=== PATIENT | male | born 1960 | race Caucasian/White ===

== ENCOUNTER 2018-08-22 18:42 | Inpatient (IN) | payer OTHER ==
[2018-08-22 18:55] VITALS: BMI 36.3
[2018-08-22] MEDS ORDERED: ADENOSINE 6 MG/2 ML VIAL IVPUSH ONE ×4 (18:57→19:36)
--- NOTE | 2018-08-22 19:29 | PDOC ---
Attending Attestation - Resident Resident Name: Keira Lira - ED Attending Attestation I have performed the following: I have examined & evaluated the patient, The case was reviewed & discussed with the resident, I agree w/resident's findings & plan, Exceptions are as noted - HPI HPI: 08/22/18 19:28 89-year-old male referred by Dr. Alves for rapid A. fib. Patient had been intermittently short of breath for the past 2 weeks and made an appointment with Dr. Cordero. Upon arrival to his office, it was evident that his heart rate was in the high 170s He received bystolic 5 mg by mouth in the office and then was brought to the emergency department 08/22/18 20:09 - Physicial Exam PE: 08/22/18 19:29 well-developed well nourished 57-year-old male presents with rapid heart beat in 170's head ncat neck supple lungs cvs tachycardia abd protuberant ext skin warm and dry neuro axox3 08/22/18 19:30 - Medical Decision Making 08/22/18 20:09 57 yo female with PMH of hemochromatosis,htn will admitted to telemetry for new onset af RVR, lovenox given Dr Jose Angel Wahl ,dental assistant medical assistant consulted , pt given IV then po cardizem and rate decreased from 177 to 107 08/22/18 22:36
[2018-08-22 19:30] LABS: BASO % 0.6 % (0-2.0); EOS % 0.8 % (0-4.5); HEMATOCRIT 52.7 % (35.4-49); HEMOGLOBIN 18.3 GM/dL (11.7-16.9); LYMPH % 14.4 % (8-40); MCH 30.6 pg (25.7-33.7); MCHC 34.7 g/dl (32.0-35.9); MEAN CELL VOLUME 88.4 fl (80-96); MEAN PLT VOLUME 9.6 fl (7.5-11.1); MONO % 8.6 % (3.8-10.2); NEUT % 75.6 % (42.8-82.8); PLATELET COUNT 301 K/MM3 (134-434); RBC 5.96 M/mm3 (4.00-5.60); RDW 13.6 % (11.9-15.9); WHITE BLOOD COUNT 11.6 K/mm3 (4.0-10.0)
--- NOTE | 2018-08-22 19:31 | PDOC ---
History of Present Illness - General History Source: Patient - History of Present Illness Initial Comments: 08/22/18 19:20 57M w/ pmhx of HTN and hemachromatoss was sent to the ED by his PCP, Dr. Cordero for abnormal EKG done in the office. Pt admits to shortness of breath over the past 2 weeks, but attributed his symptoms to allergies. Today, he was seen in the office by his PCP for clearance of a sleep study, and was subsequently found to have new onset a. fib with RVR. In the office, pt was given Bystolic 5 mg PO once. Denies lopez/d, n/v, chest pain, abd pain, hx of cardiac/lung disease. Pt has not seen his PCP for the past 3 years. PCP: Dr. Cordero PMHx: HTN, hemachromatosis PSHx: L knee sx FHx: Sister-breast cx Social: Denies tobacco, alcohol, rec drug use <Keira Lira - Last Filed: 08/22/18 22:23> <Katelin Farris - Last Filed: 08/22/18 22:39> - General Chief Complaint: Tachycardia Stated Complaint: CHEST PAIN Time Seen by Provider: 08/22/18 18:50 Past History - Past Medical History COPD: No HTN: Yes Kidney Stones: Yes - Suicide/Smoking/Psychosocial Hx Smoking History: Unknown if ever smoked Have you smoked in the past 12 months: No Information on smoking cessation initiated: No Hx Alcohol Use: No Drug/Substance Use Hx: No <Keira Lira - Last Filed: 08/22/18 22:23> <Katelin Farris - Last Filed: 08/22/18 22:39> - Past Medical History Allergies/Adverse Reactions: Allergies Allergy/AdvReac Type Severity Reaction Status Date / Time Penicillins Allergy Verified 08/22/18 18:55 *Physical Exam - Vital Signs Last Vital Signs Temp Pulse Resp BP Pulse Ox 97.7 F 170 H 20 124/104 H 96 08/22/18 18:48 08/22/18 18:48 08/22/18 18:48 08/22/18 18:48 08/22/18 18:48 <Keira Lira - Last Filed: 11/06/18 22:23> - Vital Signs Last Vital Signs Temp Pulse Resp BP Pulse Ox 97.7 F 160 H 18 126/103 H 100 08/22/18 18:48 08/22/18 19:19 08/22/18 19:19 08/22/18 19:19 08/22/18 19:19 <BrentonKatelin Montserrat - Last Filed: 08/22/18 22:39> ED Treatment Course - LABORATORY CBC & Chemistry Diagram: 08/22/18 20:40 08/22/18 20:40 - RADIOLOGY Radiology Studies Ordered: Category Date Time Status CHEST X-RAY PORTABLE* [RAD] Stat Radiology 08/22/18 19:18 Ordered <SorayaKarlaKeira - Last Filed: 08/22/18 22:23> - LABORATORY CBC & Chemistry Diagram: 08/22/18 20:40 08/22/18 20:40 - ADDITIONAL ORDERS Additional order review: Laboratory Results 08/22/18 08/22/18 08/22/18 21:35 20:52 20:40 PT with INR INR PTT (Actin FS) Sodium 140 Potassium 3.8 Chloride 101 Carbon Dioxide 30 Anion Gap 9 BUN 24 H Creatinine 1.4 H Creat Clearance w eGFR 51.87 Random Glucose 109 H Calcium 9.0 Total Bilirubin 0.5 AST 32 ALT 78 H Alkaline Phosphatase 82 Creatine Kinase Creatine Kinase Index CK-MB (CK-2) Troponin I B-Natriuretic Peptide Total Protein 6.2 L Albumin 3.5 Stool Occult Blood Negative Positive 08/22/18 08/22/18 08/22/18 20:40 20:40 19:24 PT with INR 12.40 INR 1.05 PTT (Actin FS) 35.4 Sodium Cancelled Potassium Cancelled Chloride Cancelled Carbon Dioxide Cancelled Anion Gap Cancelled BUN Cancelled Creatinine Cancelled Creat Clearance w eGFR Cancelled Random Glucose Cancelled Calcium Cancelled Total Bilirubin Cancelled AST Cancelled ALT Cancelled Alkaline Phosphatase Cancelled Creatine Kinase 286 Cancelled Creatine Kinase Index 2.2 CK-MB (CK-2) 6.5 H Troponin I 0.04 Cancelled B-Natriuretic Peptide 6880.9 H Cancelled Total Protein Cancelled Albumin Cancelled Stool Occult Blood 08/22/18 19:24 PT with INR 12.10 INR 1.03 PTT (Actin FS) 32.6 Sodium Potassium Chloride Carbon Dioxide Anion Gap BUN Creatinine Creat Clearance w eGFR Random Glucose Calcium Total Bilirubin AST ALT Alkaline Phosphatase Creatine Kinase Creatine Kinase Index CK-MB (CK-2) Troponin I B-Natriuretic Peptide Total Protein Albumin Stool Occult Blood 08/22/18 08/22/18 20:40 19:24 RBC 5.88 H 5.96 H MCV 88.0 88.4 MCHC 34.7 34.7 RDW 13.4 13.6 MPV 9.0 9.6 Neutrophils % 73.8 75.6 Lymphocytes % 15.8 14.4 Monocytes % 8.6 8.6 Eosinophils % 1.2 0.8 Basophils % 0.6 0.6 - Medications Given in the ED: ED Medications Discontinued Medications Generic Name Dose Route Start Last Admin Trade Name Freq PRN Reason Stop Dose Admin Adenosine 6 mg 08/22/18 19:35 08/22/18 19:36 Adenocard - IVPUSH 08/22/18 19:36 6 mg ONCE ONE Administration Adenosine 6 mg 08/22/18 19:36 08/22/18 19:36 Adenocard - IVPUSH 08/22/18 19:37 6 mg ONCE ONE Administration Adenosine 12 mg 08/22/18 19:36 08/22/18 19:37 Adenocard - IVPUSH 08/22/18 19:37 12 mg ONCE ONE Administration Diltiazem HCl 20 mg 08/22/18 19:37 08/22/18 20:01 Cardizem Injection - IVPUSH 08/22/18 19:38 20 mg ONCE ONE Administration <Katelin Farris - Last Filed: 08/22/18 22:39> Medical Decision Making - Medical Decision Making 08/22/18 19:31 57M w/ pmhx of hemachromatosis and HTN sent to the ED by his PCP, Dr. Cordero, for an incidental EKG finding of new onset atrial fibrillation w/ RVR. Pt complained of 2 week hx of sob. Seen diaphoretic, satting in the mid 90s on 2L NC. -EKG showed a. fib w/ RVR -Adenosine IVP given, 6 mg > 6 mg > 12 mg; No response, persistent tachycardia 160-180s. 08/22/18 20:22 -Diltiazem 20 mg IVP given; HR now in 120-130s. -Case discussed with Dr. Wahl (cardio), recommended Diltiazem 30 mg PO Q6H. 08/22/18 20:42 -repeat EKG showed atrial fib, HR 107 -await PTT, PT/INR, FOBT prior to starting AC 08/22/18 21:38 -FOBT (+); Pt reports he has a history of hemorrhoids. Will repeat FOBT prior to starting AC 08/22/18 22:20 -repeat FOBT (-); Will give Lovenox 100 mg SQ for AC -Will admit to inpatient tele; awaiting call back from hospitalist service <Keira Lira - Last Filed: 08/22/18 22:23> *DC/Admit/Observation/Transfer <Keira Lira - Last Filed: 08/22/18 22:23> - Discharge Dispostion Decision to Admit order: Yes <Katelin Farris - Last Filed: 08/22/18 22:39> Diagnosis at time of Disposition: New onset a-fib - Discharge Dispostion Condition at time of disposition: Improved - Referrals Referrals: Aniceto Cordero MD [Primary Care Provider] -
[2018-08-22] MEDS ORDERED: dilTIAZem HCL 50 MG/10 ML - 10 ML VIAL IVPUSH ONE (19:37)
[2018-08-22 19:43] LABS: INR 1.03 (0.83-1.09); PROTHROMBIN TIME (PATIENT) 12.1 SEC (9.7-13.0)
[2018-08-22 19:46] LABS: ACTIVATED PTT 32.6 SECONDS (25.2-36.5)
[2018-08-22] MEDS ORDERED: dilTIAZem HCL 125 MG/25 ML - 25 ML VIAL ONE (19:50)
[2018-08-22] MEDS ORDERED: DILTIAZEM INJECTION 125 MG in SODIUM CHLORIDE 100 ML IVPB SCH (20:15)
[2018-08-22] MEDS ORDERED: dilTIAZem HCL 30 MG TABLET (FP) ONE ×2 (20:34→23:39)
[2018-08-22 20:48] LABS: BASO % 0.6 % (0-2.0); EOS % 1.2 % (0-4.5); HEMATOCRIT 51.8 % (35.4-49); LYMPH % 15.8 % (8-40); MCH 30.6 pg (25.7-33.7); MCHC 34.7 g/dl (32.0-35.9); MONO % 8.6 % (3.8-10.2); NEUT % 73.8 % (42.8-82.8); PLATELET COUNT 232 K/MM3 (134-434); RBC 5.88 M/mm3 (4.00-5.60); RDW 13.4 % (11.9-15.9); WHITE BLOOD COUNT 10.9 K/mm3 (4.0-10.0)
[2018-08-22 21:12] LABS: INR 1.05 (0.83-1.09); PROTHROMBIN TIME (PATIENT) 12.4 SEC (9.7-13.0)
[2018-08-22 21:15] LABS: ACTIVATED PTT 35.4 SECONDS (25.2-36.5)
[2018-08-22] MEDS ORDERED: ENOXAPARIN NA (PORCINE) 100 MG/1 ML DISP.SYRIN SQ ONE ×2 (21:54→22:36)
[2018-08-22 22:01] LABS: N-TERMINAL BNP 6880.9 pg/ml (5-125)
[2018-08-22 22:03] LABS: ALBUMIN 3.5 g/dl (3.4-5.0); ALK PHOS 82 U/L (45-117); ANION GAP 9 MMOL/L (8-16); BILIRUBIN,TOTAL 0.5 mg/dL (0.2-1); BLOOD UREA NITROGEN 24 mg/dL (7-18); CHLORIDE 101 mmol/L (98-107); CO2 30 mmol/L (21-32); CREATININE 1.4 mg/dL (0.55-1.3); GLUCOSE,RANDOM 109 mg/dL (74-106); POTASSIUM 3.8 mmol/L (3.5-5.1); SGOT/AST 32 U/L (15-37); SGPT/ALT 78 U/L (13-61); SODIUM 140 mmol/L (136-145); TOT PROT 6.2 g/dl (6.4-8.2)
[2018-08-22] MEDS ORDERED: dilTIAZem HCL 30 MG TABLET (FP) PO ONE (23:28)
[2018-08-23] MEDS ORDERED: dilTIAZem HCL 30 MG TABLET (FP) PO SCH
--- NOTE | 2018-08-23 00:38 | HP ---
CHIEF COMPLAINT: sob PCP: Consuelo HISTORY OF PRESENT ILLNESS: This is a 57 year old with a past medical history of HTN and hemochromatosis who presented to the ED with a 2 week history of SOB. He reports that he initially had cough and chest congestion as well and felt that his symptoms were related to a cold. He has been taking mucinex, claritin and albuterol neb for his symptoms. He presented to his PCP today as his SOB was not improving. He reports improvement in his cough. His PCP noted HR 170s and sent him to the ED for further evaluation. ER course was notable for: (1) ECG revealed afib with RVR; HR 170 (2) trop neg Recent Travel: pt denies PAST MEDICAL HISTORY: HTN, hemochromotosis PAST SURGICAL HISTORY: R THR L TKR Social History: runs an [employer] Smoking: pt denies Alcohol: rarely Drugs: pt denies Family History: mother age 86, mesothelioma father age 53, blood clot after surgery sister age 32, BrCA sister age 70, h/o TIAs, DM sister alive with HTN, HLD, preDM Allergies Penicillins Allergy (Verified 08/22/18 18:55) HOME MEDICATIONS: 3 Medication Instructions Recorded Losartan Potassium 100 mg PO DAILY 08/23/18 REVIEW OF SYSTEMS CONSTITUTIONAL: Absent: fever, chills, diaphoresis, generalized weakness, malaise, loss of appetite, weight change HEENT: Absent: rhinorrhea, nasal congestion, throat pain, throat swelling, difficulty swallowing, mouth swelling, ear pain, eye pain, visual changes CARDIOVASCULAR: Present: chest heaviness Absent: chest pain, syncope, palpitations, irregular heart rate, lightheadedness , peripheral edema RESPIRATORY: Present: shortness of breath Absent: cough, dyspnea with exertion, orthopnea, wheezing, stridor, hemoptysis GASTROINTESTINAL: Absent: abdominal pain, abdominal distension, nausea, vomiting, diarrhea, constipation, melena, hematochezia GENITOURINARY: Absent: dysuria, frequency, urgency, hesitancy, hematuria, flank pain, genital pain MUSCULOSKELETAL: Absent: myalgia, arthralgia, joint swelling, back pain, neck pain SKIN: Absent: rash, itching, pallor HEMATOLOGIC/IMMUNOLOGIC: Absent: easy bleeding, easy bruising, lymphadenopathy, frequent infections ENDOCRINE: Absent: unexplained weight gain, unexplained weight loss, heat intolerance, cold intolerance NEUROLOGIC: Absent: headache, focal weakness or paresthesias, dizziness, unsteady gait, seizure, mental status changes, bladder or bowel incontinence PSYCHIATRIC: Absent: anxiety, depression, suicidal or homicidal ideation, hallucinations. PHYSICAL EXAMINATION Vital Signs - 24 hr 3 08/22/18 08/22/18 08/22/18 18:48 19:05 19:19 Temperature 97.7 F 97.6 F Pulse Rate 170 H Pulse Rate [ 160 H Radial] Respiratory 20 20 18 Rate Blood Pressure 124/104 H Blood Pressure 124/100 126/103 H [Left Arm] O2 Sat by Pulse 96 98 100 Oximetry (%) 3 08/22/18 08/22/18 21:05 22:59 Temperature 97.8 F 97.6 F Pulse Rate Pulse Rate [ 125 H 119 H Radial] Respiratory 20 20 Rate Blood Pressure Blood Pressure 138/94 134/98 [Left Arm] O2 Sat by Pulse 96 98 Oximetry (%) GENERAL: Awake, alert, and fully oriented, in no acute distress. HEAD: Normal with no signs of trauma. EYES: Pupils equal, round and reactive to light, extraocular movements intact, sclera anicteric, conjunctiva clear. No lid lag. EARS, NOSE, THROAT: Ears normal, nares patent, oropharynx clear without exudates. Moist mucous membranes. NECK: Normal range of motion, supple without lymphadenopathy, JVD, or masses. LUNGS: Breath sounds equal, clear to auscultation bilaterally. No wheezes, and no crackles. No accessory muscle use. HEART: Tachy, Irregular rate and rhythm, normal S1 and S2 without murmur, rub or gallop. ABDOMEN: Soft, nontender, not distended, normoactive bowel sounds, no guarding, no rebound, no masses. No hepatomegaly or splenomegaly. MUSCULOSKELETAL: Normal range of motion at all joints. No bony deformities or tenderness. No CVA tenderness. UPPER EXTREMITIES: 2+ pulses, warm, well-perfused. No cyanosis. No clubbing. No peripheral edema. LOWER EXTREMITIES: 2+ pulses, warm, well-perfused. No calf tenderness. No peripheral edema. NEUROLOGICAL: Cranial nerves II-XII intact. Normal speech. Normal gait. PSYCHIATRIC: Cooperative. Good eye contact. Appropriate mood and affect. SKIN: Warm, dry, normal turgor, no rashes or lesions noted, normal capillary refill. Laboratory Results - last 24 hr 3 08/22/18 08/22/18 08/22/18 19:24 19:24 19:24 WBC 11.6 H RBC 5.96 H Hgb 18.3 H Hct 52.7 H MCV 88.4 MCH 30.6 MCHC 34.7 RDW 13.6 Plt Count 301 MPV 9.6 Absolute Neuts (auto) 8.8 H Neutrophils % 75.6 Lymphocytes % 14.4 Monocytes % 8.6 Eosinophils % 0.8 Basophils % 0.6 Nucleated RBC % 0 PT with INR 12.10 INR 1.03 PTT (Actin FS) 32.6 Sodium Cancelled Potassium Cancelled Chloride Cancelled Carbon Dioxide Cancelled Anion Gap Cancelled BUN Cancelled Creatinine Cancelled Creat Clearance w eGFR Cancelled Random Glucose Cancelled Calcium Cancelled Total Bilirubin Cancelled AST Cancelled ALT Cancelled Alkaline Phosphatase Cancelled Creatine Kinase Cancelled Creatine Kinase Index CK-MB (CK-2) Troponin I Cancelled B-Natriuretic Peptide Cancelled Total Protein Cancelled Albumin Cancelled Stool Occult Blood 3 08/22/18 08/22/18 08/22/18 20:40 20:40 20:40 WBC 10.9 H RBC 5.88 H Hgb 18.0 H Hct 51.8 H MCV 88.0 MCH 30.6 MCHC 34.7 RDW 13.4 Plt Count 232 D MPV 9.0 Absolute Neuts (auto) 8.0 Neutrophils % 73.8 Lymphocytes % 15.8 Monocytes % 8.6 Eosinophils % 1.2 Basophils % 0.6 Nucleated RBC % 0 PT with INR 12.40 INR 1.05 PTT (Actin FS) 35.4 Sodium Potassium Chloride Carbon Dioxide Anion Gap BUN Creatinine Creat Clearance w eGFR Random Glucose Calcium Total Bilirubin AST ALT Alkaline Phosphatase Creatine Kinase 286 Creatine Kinase Index 2.2 CK-MB (CK-2) 6.5 H Troponin I 0.04 B-Natriuretic Peptide 6880.9 H Total Protein Albumin Stool Occult Blood 3 08/22/18 08/22/18 08/22/18 20:40 20:52 21:35 WBC RBC Hgb Hct MCV MCH MCHC RDW Plt Count MPV Absolute Neuts (auto) Neutrophils % Lymphocytes % Monocytes % Eosinophils % Basophils % Nucleated RBC % PT with INR INR PTT (Actin FS) Sodium 140 Potassium 3.8 Chloride 101 Carbon Dioxide 30 Anion Gap 9 BUN 24 H Creatinine 1.4 H Creat Clearance w eGFR 51.87 Random Glucose 109 H Calcium 9.0 Total Bilirubin 0.5 AST 32 ALT 78 H Alkaline Phosphatase 82 Creatine Kinase Creatine Kinase Index CK-MB (CK-2) Troponin I B-Natriuretic Peptide Total Protein 6.2 L Albumin 3.5 Stool Occult Blood Positive Negative ECG 08/22/18 18:56 Afib with RVR vent rate 170, QTC 484 left axis deviation no acute ST/T wave changes 08/22/18 20:36 Afib with RVR vent rate 108, QTC [address]/T wave changes Radiology Reports Chest portable Impression No acute cardiopulmonary disease is present Reported By: Dieter Sanchez MD 08/22/181953 ASSESSMENT/PLAN: 57yM with PMH HTN, hemochromatosis presented to the ED with SOB. Afib with RVR - HR back up into 140s-150s, will repeat cardizem 30po, if no response in 1h , will give IV - monitor on tele - trend trops - cardiology consult - [id number] score is 1, given lovenox by ED, defer AC to cardiology - ? etiology r/t to cold medicines? HTN - hold home losartan for now, given cardizem elevated Cr - unknown baseline, given 1L NS in ed - repeat in am hemochromatosis - Hgb 18 - hematology consult DVT PPX - given full dose lovenox FEN - tolerating po - BMP in am - low sodium diet as tolerated Dispo: pt currently requires further observation. Visit type - Emergency Visit Emergency Visit: Yes ED Registration Date: 08/22/18 Care time: The patient presented to the Emergency Department on the above date and was hospitalized for further evaluation of their emergent condition. - New Patient This patient is new to me today: Yes Date on this admission: 08/22/18 - Critical Care Critical Care patient: No
[2018-08-23] MEDS ORDERED: dilTIAZem HCL 50 MG/10 ML - 10 ML VIAL IVPUSH ONE ×3 (00:41→14:00)
[2018-08-23] MEDS ORDERED: dilTIAZem HCL 125 MG/25 ML - 25 ML VIAL ONE ×2 (00:43→13:48)
[2018-08-23] MEDS ORDERED: dilTIAZem HCL 60 MG TABLET (FP) ONE (06:03)
[2018-08-23] MEDS: dilTIAZem HCL 60 MG TABLET (FP) PO SCH ×4 (06:06→23:47)
[2018-08-23 08:52] LABS: HEMATOCRIT 53.5 % (35.4-49); HEMOGLOBIN 17.4 GM/dL (11.7-16.9); MCHC 32.5 g/dl (32.0-35.9); MEAN PLT VOLUME 8.8 fl (7.5-11.1); PLATELET COUNT 212 K/MM3 (134-434); RBC 6.02 M/mm3 (4.00-5.60); WHITE BLOOD COUNT 9.7 K/mm3 (4.0-10.0)
[2018-08-23 09:16] LABS: ANION GAP 8 MMOL/L (8-16); BLOOD UREA NITROGEN 22 mg/dL (7-18); CHLORIDE 101 mmol/L (98-107); CO2 30 mmol/L (21-32); CREATININE 1.5 mg/dL (0.55-1.3); GLUCOSE,RANDOM 152 mg/dL (74-106); MAGNESIUM 2.2 mg/dL (1.8-2.4); PHOSPHOROUS 3.8 mg/dL (2.5-4.9); POTASSIUM 3.7 mmol/L (3.5-5.1); SODIUM 139 mmol/L (136-145)
--- NOTE | 2018-08-23 09:53 | EKG ---
Test Reason : Blood Pressure : / mmHG Vent. Rate : 170 BPM Atrial Rate : 441 BPM P-R Int : 000 ms QRS Dur : 082 ms QT Int : 288 ms P-R-T Axes : 000 -31 066 degrees QTc Int : 484 ms ATRIAL FIBRILLATION WITH RAPID VENTRICULAR RESPONSE LEFT AXIS DEVIATION ANTERIOR INFARCT , AGE UNDETERMINED ABNORMAL ECG NO PREVIOUS ECGS AVAILABLE Confirmed by KANDI FAGAN MD ([id number]) on 08/23/2018 9:53:11 AM Referred By: Confirmed By:KANDI FAGAN MD
--- NOTE | 2018-08-23 09:55 | EKG ---
Test Reason : Blood Pressure : / mmHG Vent. Rate : 110 BPM Atrial Rate : 258 BPM P-R Int : 000 ms QRS Dur : 096 ms QT Int : 288 ms P-R-T Axes : 000 -09 121 degrees QTc Int : 389 ms ATRIAL FIBRILLATION WITH RAPID VENTRICULAR RESPONSE CANNOT RULE OUT INFERIOR INFARCT , AGE UNDETERMINED ABNORMAL ECG WHEN COMPARED WITH ECG OF 22-AUG-2018 20:36, NO SIGNIFICANT CHANGE WAS FOUND Confirmed by RYLAN LEY, KANDI ([id number]) on 08/23/2018 9:55:20 AM Referred By: WILL KUMAR Confirmed By:KANDI FAGAN MD
--- NOTE | 2018-08-23 09:55 | EKG ---
Test Reason : Blood Pressure : / mmHG Vent. Rate : 107 BPM Atrial Rate : 127 BPM P-R Int : 000 ms QRS Dur : 086 ms QT Int : 288 ms P-R-T Axes : 000 -28 063 degrees QTc Int : 384 ms POOR DATA QUALITY, INTERPRETATION MAY BE ADVERSELY AFFECTED ATRIAL FIBRILLATION WITH RAPID VENTRICULAR RESPONSE ANTERIOR INFARCT (CITED ON OR BEFORE 22-AUG-2018) ABNORMAL ECG WHEN COMPARED WITH ECG OF 22-AUG-2018 18:56, VENT. RATE HAS DECREASED BY 63 BPM Confirmed by RYLAN LEY, KANDI ([id number]) on 08/23/2018 9:54:38 AM Referred By: Confirmed By:KANDI FAGAN MD
--- NOTE | 2018-08-23 13:12 | CON.CARD ---
Consult Consult Specialty:: Cardiology Referred by:: Dr. Garza Reason for Consultation:: Newly dx afib with RVR, sob, palpitations. - History of Present Illness Chief Complaint: sob, palpitations History of Present Illness: 57 year old with a past medical history of HTN and hemochromatosis admitted with a 2 week h/o SOB, palpitations, found to be in afib with RVR up to 170bpm. Pt was seen and examined today in nad. states he is feeling better since admission. states that for the past 2 weeks he has had a mild cough and chest congestion and thought he had a cold so he took some over the cougnter meds as well as an albuterol nebulizer. He was his PMD yesterday and was found to be in afib with RVR. In the ER yesterday and overnight he received IV Adenosine IV diltiazem, Lovenox and started on Cardizem po. Currently denies any symptoms but does feel his heart fluttering mildly. Denies having had any chest pain, lightheadedness, dizziness, syncope, near syncope, pnd, orthopnea, or LE edema. - History Source History Provided By: Patient, Family Member Limitations to Obtaining History: No Limitations - Past Medical History Cardio/Vascular: Yes: HTN Endocrine: Yes: Other (Hemachromotasosi) - Alcohol/Substance Use Hx Alcohol Use: No - Smoking History Smoking history: Unknown if ever smoked Have you smoked in the past 12 months: No - Social History Usual Living Arrangement: Alone ADL: Independent History of Recent Travel: No Home Medications - Allergies Allergies/Adverse Reactions: Allergies Allergy/AdvReac Type Severity Reaction Status Date / Time Penicillins Allergy Verified 08/22/18 18:55 - Home Medications Home Medications: Ambulatory Orders Losartan Potassium 100 mg PO DAILY 08/23/18 Family Disease History - Family Disease History Family History: Denies Review of Systems - Review of Systems Constitutional: denies: No Symptoms, Chills, Diaphoresis, Fever, Lethargy, Loss of Appetite, Malaise, Night Sweats, Unintentional Wgt. Loss, Weakness, Other Eyes: denies: No Symptoms, Blind Spots, Blurred Vision, Double Vision, Eye Pain , Floaters, Photophobia, Recent Change in Vision, Other HENT: denies: No Symptoms, Difficult Swallowing, Ear Discharge, Ear Pain, Epistaxis, Gingival Bleeding, Hearing Loss, Mouth Swelling, Nasal Congestion, Ocular Prosthesis, Throat Pain, Toothache, Ringing in Ears, Other Neck: denies: No Symptoms, Decreased ROM, Lumps, Pain on Movement, Stiffness, Swollen Glands, Tenderness, Other Cardiovascular: reports: Palpitations, Shortness of Breath. denies: No Symptoms , Chest Pain, Edema, Other Respiratory: reports: SOB, SOB on Exertion. denies: No Symptoms, Cough, Exercise Intolerance, Hemoptysis, Orthopnea, PND, Snoring, Wheezing, Other Gastrointestinal: denies: No Symptoms, Abdominal Pain, Bloating, Constipation, Diarrhea, Dysphagia, Indigestion, Melena, Nausea, Rectal Bleeding, Vomiting, Vomiting Blood, Other Genitourinary: denies: No Symptoms, Burning, Discharge, Dysuria, Flank Pain, Frequency, Hematuria, Incontinence, Lesions, Menses, Pain, Testicular Mass, Testicular Pain, Testicular Swelling, Urgency, Vaginal Bleeding, Other Breasts: denies: No Symptoms Reported, See HPI, Breast Implants, Discharge from Nipple, Lumps, Pain, Skin Changes, Other Musculoskeletal: denies: No Symptoms, Back Pain, Crepitus, Decreased ROM, Extremity Pain, Joint Pain, Joint Swelling, Muscle Pain, Muscle Cramps, Muscle Weakness, Other Integumentary: denies: No Symptoms, Blister, Bruising, Change in Color, Eczema, Erythema, Incision, Lesions, Lump, Pallor, Pruritis, Rash, Wound, Other Neurological: denies: No Symptoms, Change in LOC, Change in Speech, Confusion, Dizziness, Headache, Incoordination, Numbness, Parasthesia, Pre-Existing Deficit , Seizure, Syncope, Tremors, Unsteady Gait, Weakness, Other Endocrine: denies: No Symptoms, Excessive Sweating, Flushing, Increased Hunger, Increased Thirst, Intolerance to Cold, Intolerance to Heat, Unexplained Weight Gain, Unexplained Weight Loss, Other Hematology/Lymphatic: denies: No Symptoms, Easily Bruised, Excessive Bleeding, Swollen Glands, Other Psychiatric: denies: No Symptoms, Altered Sleep Pattern, Anxiety, Depression, Hallucinations, Panic, Paranoia, Suicidal, Other - Risk Factors Known Risk Factors: Yes: Hypertension Vital Signs: Vital Signs Temperature 98.2 F 08/23/18 11:45 Pulse Rate 130 H 08/23/18 11:45 Respiratory Rate 18 08/23/18 11:45 Blood Pressure 113/86 08/23/18 11:45 O2 Sat by Pulse Oximetry (%) 100 08/23/18 11:45 Constitutional: Yes: No Distress, Calm, Obese Eyes: Yes: Conjunctiva Clear, EOM Intact, PERRL HENT: Yes: Atraumatic, Normocephalic Neck: Yes: Supple, Trachea Midline Respiratory: Yes: Regular, CTA Bilaterally. No: Rales, Rhonchi, SOB, Wheezes Gastrointestinal: Yes: Normal Bowel Sounds, Soft. No: Distention, Tenderness Cardiovascular: Yes: Tachycardia, Pulse Irregular. No: Regular Rate and Rhythm , Bradycardia, Gallop, Rub, Varicosities JVD: No Carotid Bruit: No PMI: Non-Displaced Heart Sounds: Yes: S1, S2. No: Split S2, S3, S4, Clicks, Gallop, Rub, Bruit Murmur: No: Systolic Murmur, Diastolic Murmur Musculoskeletal: Yes: WNL Extremities: Yes: WNL Edema: No Peripheral Pulses WNL: Yes Peripheral Pulses: 2+ Left Doralis Pedis, 2+ Right Dorsalis Pedis Integumentary: Yes: WNL Neurological: Yes: WNL, Alert, Oriented, Cran Nerves II-XII Intact Psychiatric: Yes: WNL, Alert, Oriented - Other Data Labs, Other Data: CBC, BMP 08/23/18 08:40 08/23/18 08:40 INR, PTT INR 1.05 (0.83-1.09) 08/22/18 20:40 Troponin, BNP 08/22/18 08/22/18 08/23/18 19:24 20:40 03:15 Troponin I Cancelled 0.04 0.05 B-Natriuretic Peptide Cancelled 6880.9 H 08/23/18 08:40 Troponin I 0.03 B-Natriuretic Peptide Troponin, BNP 08/22/18 08/22/18 08/23/18 19:24 20:40 03:15 Troponin I Cancelled 0.04 0.05 B-Natriuretic Peptide Cancelled 6880.9 H 08/23/18 08:40 Troponin I 0.03 B-Natriuretic Peptide afib with RVR, ekg today afib 107bpm Echo: Pending Imaging - Results Chest X-ray: Report Reviewed, Image Reviewed EKG: Report Reviewed, Image Reviewed Other: Report Reviewed, Image Reviewed (tele-afib with rvr) Assessment/Plan 57 year old with a past medical history of HTN and hemochromatosis admitted with a 2 week h/o SOB, palpitations, found to be in afib with RVR up to 170bpm. Pt was seen and examined today in nad. states he is feeling better since admission. states that for the past 2 weeks he has had a mild cough and chest congestion and thought he had a cold so he took some over the cougnter meds as well as an albuterol nebulizer. He was his PMD yesterday and was found to be in afib with RVR. In the ER yesterday and overnight he received IV Adenosine IV diltiazem, Lovenox and started on Cardizem po. Currently denies any symptoms but does feel his heart fluttering mildly. Denies having had any chest pain, lightheadedness, dizziness, syncope, near syncope, pnd, orthopnea, or LE edema. Afib with RVR-newly diagnosed, unknown duration -based on symptoms has been going on for approximately 2 weeks -possible stimulated by albuterol -CHADS 2 score 1 approx 2.8% annual risk of CVA -pt admits to occasional mild hemorrhoidal bleeding but not significant and no other bleeding -discussed options of ASA or full AC for thromboembolic ppx and pt opted to start Eliquis -HR is still above goal -give additional Cardizem IV now -add metoprolol -tele monitoring -check echo to evaluate valvular function, LV Function, other structural abnl -goal is for HR control at this time, discussed with pt the options of cardioversion and in the future potential ablation, for now would plan for HR control and if controlled pt can likely follow up as outpatient, if HR not able to be controlled may consider LOUISE/DCCV as inpatient. SOB-likely due to afib with rvr, also consider history of hemachromotosis -no clinical sign of CHF -check echo -would consider Cardiac MRI as outpatient to evaluate for cardiac involvement of hemachromotosis -would plan for an ischemic evaluation once Afib is controlled, can likely be done as outpatient -does not require diuresis at this time -re-evaluate symptoms after AFib controlled
[2018-08-23] MEDS ORDERED: METOPROLOL TARTRATE 25 MG TABLET (FP) ONE (13:48)
[2018-08-23] MEDS ORDERED: APIXABAN 5 MG TABLET PO ONE (13:48)
[2018-08-23 13:49] LABS: HEMATOCRIT 53.7 % (35.4-49); HEMOGLOBIN 17.5 GM/dL (11.7-16.9); MCHC 32.6 g/dl (32.0-35.9); MEAN PLT VOLUME 8.9 fl (7.5-11.1); PLATELET COUNT 231 K/MM3 (134-434); RBC 6.04 M/mm3 (4.00-5.60); RDW 13.8 % (11.9-15.9); WHITE BLOOD COUNT 9.7 K/mm3 (4.0-10.0)
[2018-08-23] MEDS: APIXABAN 5 MG TABLET PO SCH ×2 (14:01→21:21)
[2018-08-23] MEDS: METOPROLOL TARTRATE 25 MG TABLET (FP) PO SCH ×2 (14:01→21:21)
--- NOTE | 2018-08-23 14:04 | CONSULT ---
Consult Consult Specialty:: Heme/Onc Referred by:: ELIJAH ordonez Reason for Consultation:: elevated Hb history of hemochromatosis - History of Present Illness Chief Complaint: elevated heart rate History of Present Illness: 57M with history of HTN and hemochromatosis sent in by PMD due to elevated HR in the office. Patient was going for his regular physical and to get a referral for a sleep study when it was noticed his HR was in the 180s per patient. He states he has been feeling SOB for the past 4 days. Patient denies nausea vomiting fever chills chest pain urinary or GI symptoms. He denies blurry vision. He states he has been phlebotomized many times in the past. He states at one point he was being phlebotomized a quart a day until his Hb came down to 15. He presents to the ER with a Hb of 18.3. His ekg was shown to be A fib with RVR - History Source History Provided By: Patient Limitations to Obtaining History: No Limitations - Past Medical History Cardio/Vascular: Yes: HTN Heme/Onc: Yes: Hemochromatosis - Alcohol/Substance Use Hx Alcohol Use: No - Smoking History Smoking history: Unknown if ever smoked Have you smoked in the past 12 months: No Home Medications - Allergies Allergies/Adverse Reactions: Allergies Allergy/AdvReac Type Severity Reaction Status Date / Time Penicillins Allergy Verified 08/22/18 18:55 - Home Medications Home Medications: Ambulatory Orders Losartan Potassium 100 mg PO DAILY 08/23/18 Review of Systems - Review of Systems Constitutional: reports: No Symptoms Eyes: reports: No Symptoms HENT: reports: No Symptoms Neck: reports: No Symptoms Cardiovascular: reports: Palpitations, Shortness of Breath Gastrointestinal: reports: No Symptoms Genitourinary: reports: No Symptoms Musculoskeletal: reports: No Symptoms Integumentary: reports: No Symptoms Neurological: reports: No Symptoms Endocrine: reports: No Symptoms Physical Exam Vital Signs: Vital Signs Temperature 98.0 F 08/23/18 13:57 Pulse Rate 120 H 08/23/18 13:57 Respiratory Rate 18 08/23/18 13:57 Blood Pressure 129/73 08/23/18 13:57 O2 Sat by Pulse Oximetry (%) 100 08/23/18 13:57 Constitutional: Yes: No Distress, Obese Eyes: Yes: Conjunctiva Clear, PERRL HENT: Yes: Atraumatic, Normocephalic Neck: Yes: Supple, Trachea Midline Cardiovascular: Yes: Pulse Irregular Respiratory: Yes: Regular, CTA Bilaterally Gastrointestinal: Yes: Normal Bowel Sounds, Soft, Abdomen, Obese Psychiatric: Yes: Alert, Oriented Labs: CBC, BMP 08/23/18 13:40 08/23/18 08:40 Imaging - Results Chest X-ray: Report Reviewed, Image Reviewed Assessment/Plan 57M with history of HTN and hemochromatosis presents to the ER with new onset afib with RVR found to have HB above 18. Problem List: Hemochromatosis HTN A fib with RVR new onset CARMEL Obesity Plan: Patient will need to have a therapeutic phlebotomy. This was done and 500ml of blood was removed with a phlebotomy blood bag kit. The procedure took about 15 minutes and his BP was 130/97 just prior to needle stick then after 15minutes when the phlebotomy was terminated his bp was 129/80. He denies any symptoms and he feels well. Repeat CBC was sent cardiology to see patient and likely anticoagulate him. Will follow Trend CBC
--- NOTE | 2018-08-23 16:13 | ECHO ---
Name: MACIEJ JOSÉ Exam:Adult Echocardiogram Study Date: 08/23/2018 03:16 PM Age: 57 yrs Reason For Study: Zia Randolph Height: 66 in Weight: 225 lb BSA: 2.1 m2 MMode/2D Measurements & Calculations IVSd: 1.0 cm Ao root diam: 2.3 cm LVIDd: 3.7 cm ACS: 1.7 cm LVIDs: 3.2 cm LVPWd: 1.8 cm EDV(Teich): 58.4 ml LVOT diam: 2.0 cm ESV(Teich): 39.8 ml RV S Giorgi: 12.0 cm/sec Doppler Measurements & Calculations MV V2 max: 429.4 cm/sec TR max giorgi: 184.6 cm/sec MV max P.7 mmHg TR max P.6 mmHg MV V2 mean: 310.4 cm/sec MV mean P.2 mmHg MV V2 VTI: 106.6 cm Med Peak E' Giorgi: 5.7 cm/sec Procedure The study was technically difficult with many images being suboptimal in quality. The study was non-d iagnostic in quality. No definitive statements could be made about this echo due to extremely poor acoustic win dows. Left Ventricle The left ventricle is not well visualized. The left ventricle is grossly normal size. Left ventricula r systolic function is severely reduced. Regional wall motion abnormalities cannot be excluded due to l imited visualization. There is severe global hypokinesis of the left ventricle. Atria The left atrium is not well visualized. Right atrium not well visualized. Mitral Valve The mitral valve is not well visualized. There is no mitral valve stenosis. There is severe mitral regurgitation. Tricuspid Valve The tricuspid valve is not well visualized. There is no tricuspid stenosis. There is severe tricuspid regurgitation. Right ventricular systolic pressure is normal. Aortic Valve The aortic valve is not well visualized. Pulmonic Valve The pulmonic valve is not well visualized. There is no pulmonic valvular stenosis. Trace to mild pulm onic valvular regurgitation. Great Vessels The aortic root is normal size. Pericardium/Pleura There is no pericardial effusion. Interpretation Summary The study was technically difficult with many images being suboptimal in quality. The study was non-diagnostic in quality. No definitive statements could be made about this echo due t o extremely poor acoustic windows. The left ventricle is not well visualized. The left ventricle is grossly normal size. Left ventricular systolic function is severely reduced. Regional wall motion abnormalities cannot be excluded due to limited visualization. There is severe global hypokinesis of the left ventricle. There is severe tricuspid regurgitation. Right ventricular systolic pressure is normal. There is severe mitral regurgitation. The left atrium is not well visualized. Right atrium not well visualized. The mitral valve is not well visualized. The tricuspid valve is not well visualized. The aortic valve is not well visualized. MD Jeff Sullivan 08/23/2018 04:13 PM
--- NOTE | 2018-08-23 18:27 | PN ---
Progress Note, Physician Chief Complaint: SOB New onset Afib History of Present Illness: NAD still intermittent SOB - Current Medication List Current Medications: Active Medications Apixaban (Eliquis -) 5 mg PO BID [facility] Last Admin: 08/23/18 14:01 Dose: 5 mg Diltiazem HCl (Cardizem -) 60 mg PO Q6HPO [facility] Last Admin: 08/23/18 17:36 Dose: 60 mg Metoprolol Tartrate (Lopressor -) 25 mg PO BID [facility] Last Admin: 08/23/18 14:01 Dose: 25 mg Metoprolol Tartrate (Lopressor Injection -) 5 mg IVPUSH Q4H PRN PRN Reason: TACHYCARDIA - Objective Vital Signs: Vital Signs Temperature 97.8 F 08/23/18 17:42 Pulse Rate 109 H 08/23/18 17:42 Respiratory Rate 18 08/23/18 17:52 Blood Pressure 114/86 08/23/18 17:42 O2 Sat by Pulse Oximetry (%) 98 08/23/18 17:52 Constitutional: Yes: Well Nourished, No Distress, Calm Cardiovascular: Yes: Tachycardia, Pulse Irregular Respiratory: Yes: Regular Gastrointestinal: Yes: Normal Bowel Sounds, Soft, Abdomen, Obese Musculoskeletal: Yes: WNL Extremities: Yes: WNL Edema: No Peripheral Pulses WNL: Yes Neurological: Yes: Alert, Oriented Psychiatric: Yes: Alert, Oriented Labs: CBC, BMP 08/23/18 13:40 08/23/18 08:40 INR, PTT INR 1.05 (0.83-1.09) 08/22/18 20:40 Problem List - Problems (1) New onset a-fib Assessment/Plan: -echo shows severely reduced LV systolic function -Started on Eliquis -Tele monitoring -Seen by cardiology -started on Cardizem 60 mg po Q6h -On metoprolol 25 mg po bid Code(s): I48.91 - UNSPECIFIED ATRIAL FIBRILLATION Assessment/Plan see problem list
[2018-08-23] MEDS: METOPROLOL TARTRATE 5 MG/5 ML VIAL IVPUSH PRN (19:48)
[2018-08-23] MEDS ORDERED: PT OWN MED DRAWER 7, Y5N ONE (21:18)
--- NOTE | 2018-08-23 21:19 | PN ---
Teaching Attending Note Name of Resident: Adeel Rudd ATTENDING PHYSICIAN STATEMENT I saw and evaluated the patient. I reviewed the resident's note and discussed the case with the resident. I agree with the resident's findings and plan as documented. SUBJECTIVE: Patient seen and examined Carried with diagnosis of hemochromatosis. Unaware of any gene testing in past . States several family members also have similar condition. Preented with new onset of raid atrial fib. OBJECTIVE: ASSESSMENT AND PLAN:
--- NOTE | 2018-08-23 21:19 | PN ---
Teaching Attending Note Name of Resident: Adeel Rudd ATTENDING PHYSICIAN STATEMENT I saw and evaluated the patient. I reviewed the resident's note and discussed the case with the resident. I agree with the resident's findings and plan as documented. SUBJECTIVE: Patient seen and examined . 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 Carried with diagnosis of hemochroatosis, but not aware of mutation testing. States several family members have similar conditions. Has erythrocytosis and has been phlebotomized in past. Not recently. It is somewhat unusual to have erythrocytosis or polycythemai with hemochromatosis of the hereditary variety. Typically it is associated with a normal hct and indices. Patient does need phlebotomy to Hct 45%- current guidelines from [facility] study [facility]. Would consider HFE, JORDAN-2, total and free testosterone, erythropoietin, and ABG' s to evaluate erythrocytosis-as initial screening. This could be done in either an in or outpatient setting. In interim , would phlebotomize to hct 45%. OBJECTIVE: ASSESSMENT AND PLAN:
[2018-08-23] MEDS ORDERED: MELATONIN 5 MG TABLETS PO ONE (22:50)
--- NOTE | 2018-08-24 00:13 | CONSULT ---
Consult Consult Specialty:: endocrine - History of Present Illness Chief Complaint: short of breath and weakness History of Present Illness: 57 year old with a past medical history of HTN and hemochromatosis who presented to the office with a 2 week history of SOB. He reports that he initially had cough and chest congestion as well and felt that his symptoms were related to a cold. He has been taking mucinex, claritin and albuterol neb for his symptoms. He reports improvement in his cough. after examination his bp was 140/90 and HR 170s and sent him to ed for further evaluation via ems.he had no chest pain - Past Medical History Cardio/Vascular: Yes: HTN Endocrine: Yes: Other (Hemachromotasosi) - Alcohol/Substance Use Hx Alcohol Use: No - Smoking History Smoking history: Never smoked Have you smoked in the past 12 months: No - Social History Usual Living Arrangement: Alone ADL: Independent History of Recent Travel: No Home Medications - Allergies Allergies/Adverse Reactions: Allergies Allergy/AdvReac Type Severity Reaction Status Date / Time Penicillins Allergy Verified 08/22/18 18:55 - Home Medications Home Medications: Ambulatory Orders Losartan Potassium 100 mg PO DAILY 08/23/18 Review of Systems - Review of Systems Constitutional: reports: Weakness HENT: reports: No Symptoms Neck: reports: No Symptoms Cardiovascular: reports: Shortness of Breath Respiratory: reports: Exercise Intolerance Gastrointestinal: reports: Bloating, Constipation Genitourinary: reports: Frequency Breasts: reports: No Symptoms Reported Musculoskeletal: reports: Muscle Weakness Neurological: reports: Unsteady Gait, Weakness Endocrine: reports: Unexplained Weight Gain Physical Exam Vital Signs: Vital Signs Temperature 97.4 F L 08/23/18 19:42 Pulse Rate 127 H 08/24/18 00:01 Respiratory Rate 20 08/23/18 19:42 Blood Pressure 146/81 08/24/18 00:01 O2 Sat by Pulse Oximetry (%) 97 08/23/18 19:00 Constitutional: Yes: Anxious Eyes: Yes: EOM Intact HENT: Yes: Normocephalic Neck: Yes: Trachea Midline Cardiovascular: Yes: Tachycardia, Pulse Irregular Respiratory: Yes: CTA Bilaterally, Tachypnea Gastrointestinal: Yes: Normal Bowel Sounds ...Rectal Exam: Yes: Deferred Musculoskeletal: Yes: Joint Swelling, Muscle Pain, Muscle Weakness Extremities: Yes: WNL Edema: No Neurological: Yes: Alert, Oriented Labs: CBC, BMP 08/23/18 13:40 08/23/18 08:40 Problem List - Problems (1) CARMEL (obstructive sleep apnea) Code(s): G47.33 - OBSTRUCTIVE SLEEP APNEA (ADULT) (PEDIATRIC) (2) New onset a-fib Code(s): I48.91 - UNSPECIFIED ATRIAL FIBRILLATION (3) Hemochromatosis Code(s): E83.119 - HEMOCHROMATOSIS, UNSPECIFIED Assessment/Plan Current Active Problems New onset a-fib (Acute) hemochromatosis hypertension obesity sleep apnea Abnormal Lab Results 08/23/18 08/23/18 08/23/18 03:15 08:40 08:40 RBC 6.02 H Hgb 17.4 H Hct 53.5 H BUN 22 H Creatinine 1.5 H Random Glucose 152 H CK-MB (CK-2) 4.9 H 4.2 H 08/23/18 13:40 RBC 6.04 H Hgb 17.5 H Hct 53.7 H BUN Creatinine Random Glucose CK-MB (CK-2) Laboratory Results - last 24 hr 08/23/18 08/23/18 08/23/18 03:15 08:40 08:40 WBC 9.7 RBC 6.02 H Hgb 17.4 H Hct 53.5 H MCV 89.0 MCH 29.0 MCHC 32.5 RDW 14.0 Plt Count 212 MPV 8.8 Sodium 139 Potassium 3.7 Chloride 101 Carbon Dioxide 30 Anion Gap 8 BUN 22 H Creatinine 1.5 H Creat Clearance w eGFR 47.90 Random Glucose 152 H Calcium 9.0 Phosphorus 3.8 Magnesium 2.2 Creatine Kinase 198 170 Creatine Kinase Index 2.4 2.4 CK-MB (CK-2) 4.9 H 4.2 H Troponin I 0.05 0.03 08/23/18 13:40 WBC 9.7 RBC 6.04 H Hgb 17.5 H Hct 53.7 H MCV 89.0 MCH 29.0 MCHC 32.6 RDW 13.8 Plt Count 231 MPV 8.9 Sodium Potassium Chloride Carbon Dioxide Anion Gap BUN Creatinine Creat Clearance w eGFR Random Glucose Calcium Phosphorus Magnesium Creatine Kinase Creatine Kinase Index CK-MB (CK-2) Troponin I plan check tsh free t4 check hba1c hematology consult cardiac work up in progress
[2018-08-24] MEDS: METOPROLOL TARTRATE 5 MG/5 ML VIAL IVPUSH PRN ×3 (02:01→14:15)
[2018-08-24] MEDS: dilTIAZem HCL 60 MG TABLET (FP) PO SCH ×4 (05:14→23:42)
[2018-08-24 06:54] LABS: BASO % 0.6 % (0-2.0); EOS % 1.1 % (0-4.5); HEMATOCRIT 51.3 % (35.4-49); LYMPH % 15.6 % (8-40); MCH 29.3 pg (25.7-33.7); MCHC 33.2 g/dl (32.0-35.9); MEAN CELL VOLUME 88.3 fl (80-96); MEAN PLT VOLUME 9.3 fl (7.5-11.1); MONO % 9.2 % (3.8-10.2); NEUT % 73.5 % (42.8-82.8); PLATELET COUNT 215 K/MM3 (134-434); RBC 5.81 M/mm3 (4.00-5.60); RDW 13.4 % (11.9-15.9); WHITE BLOOD COUNT 9.7 K/mm3 (4.0-10.0)
[2018-08-24 07:19] LABS: ALBUMIN 3.3 g/dl (3.4-5.0); ALK PHOS 73 U/L (45-117); ANION GAP 11 MMOL/L (8-16); BILIRUBIN,TOTAL 0.8 mg/dL (0.2-1); BLOOD UREA NITROGEN 15 mg/dL (7-18); CALCIUM 8.9 mg/dL (8.5-10.1); CHLORIDE 104 mmol/L (98-107); CO2 26 mmol/L (21-32); CREATININE 1.2 mg/dL (0.55-1.3); GLUCOSE,RANDOM 104 mg/dL (74-106); POTASSIUM 3.8 mmol/L (3.5-5.1); SGOT/AST 20 U/L (15-37); SGPT/ALT 59 U/L (13-61); SODIUM 141 mmol/L (136-145)
[2018-08-24] MEDS: APIXABAN 5 MG TABLET PO SCH ×2 (09:19→21:35)
[2018-08-24] MEDS: METOPROLOL TARTRATE 25 MG TABLET (FP) PO SCH (09:19)
--- NOTE | 2018-08-24 11:35 | PN ---
Progress Note, Physician Chief Complaint: AWAKE ALERT EVENTS AND NOTES REVIEWED PATIENT SITTING UP IN BED EATING LUNCH - Current Medication List Current Medications: Active Medications Apixaban (Eliquis -) 5 mg PO BID [facility] Last Admin: 08/24/18 09:19 Dose: 5 mg Diltiazem HCl (Cardizem -) 60 mg PO Q6HPO [facility] Last Admin: 08/24/18 05:14 Dose: 60 mg Metoprolol Tartrate (Lopressor -) 25 mg PO BID [facility] Last Admin: 08/24/18 09:19 Dose: 25 mg Metoprolol Tartrate (Lopressor Injection -) 5 mg IVPUSH Q4H PRN PRN Reason: TACHYCARDIA Last Admin: 08/24/18 06:10 Dose: 5 mg - Objective Vital Signs: Vital Signs Temperature 98.2 F 08/24/18 09:18 Pulse Rate 133 H 08/24/18 09:18 Respiratory Rate 18 08/24/18 09:18 Blood Pressure 139/88 08/24/18 09:18 O2 Sat by Pulse Oximetry (%) 96 08/24/18 09:20 Constitutional: Yes: Mild Distress Eyes: Yes: WNL HENT: Yes: WNL Neck: Yes: WNL Cardiovascular: Yes: Tachycardia Respiratory: Yes: WNL Gastrointestinal: Yes: WNL Genitourinary: Yes: WNL Musculoskeletal: Yes: WNL Extremities: Yes: WNL Edema: No Peripheral Pulses WNL: Yes Integumentary: Yes: WNL Wound/Incision: Yes: Clean/Dry Neurological: Yes: WNL ...Motor Strength: WNL Psychiatric: Yes: WNL Labs: CBC, BMP 08/24/18 06:00 08/24/18 06:00 INR, PTT INR 1.05 (0.83-1.09) 08/22/18 20:40 Problem List - Problems (1) Cardiomyopathy Code(s): I42.9 - CARDIOMYOPATHY, UNSPECIFIED (2) Hemochromatosis Code(s): E83.119 - HEMOCHROMATOSIS, UNSPECIFIED (3) New onset a-fib Code(s): I48.91 - UNSPECIFIED ATRIAL FIBRILLATION (4) CARMEL (obstructive sleep apnea) Code(s): G47.33 - OBSTRUCTIVE SLEEP APNEA (ADULT) (PEDIATRIC) Assessment/Plan PATIENT ON APPRAISAL SPECIALIST VITALS AND LABS CARDIO EVAL APPRECIATED WILL NEED STRESS TEST OR LOUISE TO EVALUATE HEART FUNCTION OOB TO CHAIR NEBS DVT PROPHYLAXIS
[2018-08-24] MEDS: CYCLOBENZAPRINE HCL 10 MG TABLET (FP) PO PRN ×2 (13:12→21:37)
[2018-08-24] MEDS: traMADol HCL 50 MG TABLET PO PRN (13:14)
--- NOTE | 2018-08-24 14:29 | PN ---
Progress Note, Physician Chief Complaint: Cardiology follow up No dyspnea orthopnea or chest pain. History of Present Illness: 57 year old with a past medical history of HTN and hemochromatosis admitted with a 2 week h/o SOB, palpitations, found to be in afib with RVR up to 170bpm. Pt was seen and examined today in [facility]. states he is feeling better since admission. states that for the past 2 weeks he has had a mild cough and chest congestion and thought he had a cold so he took some over the cougnter meds as well as an albuterol nebulizer. He was his PMD yesterday and was found to be in afib with RVR. In the ER yesterday and overnight he received IV Adenosine IV diltiazem, Lovenox and started on Cardizem po. Currently denies any symptoms but does feel his heart fluttering mildly. Denies having had any chest pain, lightheadedness, dizziness, syncope, near syncope, pnd, orthopnea, or LE edema. - Current Medication List Current Medications: Active Medications Apixaban (Eliquis -) 5 mg PO BID [facility] Last Admin: 08/24/18 09:19 Dose: 5 mg Cyclobenzaprine HCl (Flexeril -) 5 mg PO TID PRN PRN Reason: BACK PAIN Last Admin: 08/24/18 13:12 Dose: 5 mg Diltiazem HCl (Cardizem -) 60 mg PO Q6HPO [facility] Last Admin: 08/24/18 13:12 Dose: 60 mg Metoprolol Tartrate (Lopressor -) 25 mg PO BID [facility] Last Admin: 08/24/18 09:19 Dose: 25 mg Metoprolol Tartrate (Lopressor Injection -) 5 mg IVPUSH Q4H PRN PRN Reason: TACHYCARDIA Last Admin: 08/24/18 06:10 Dose: 5 mg Tramadol HCl (Ultram -) 50 mg PO Q6H PRN PRN Reason: PAIN LEVEL 6-10 Last Admin: 08/24/18 13:14 Dose: 50 mg - Objective Vital Signs: Vital Signs Temperature 98.2 F 08/24/18 09:18 Pulse Rate 133 H 08/24/18 09:18 Respiratory Rate 18 08/24/18 09:18 Blood Pressure 139/88 08/24/18 09:18 O2 Sat by Pulse Oximetry (%) 96 08/24/18 09:20 Constitutional: Yes: Well Nourished, No Distress, Calm Eyes: Yes: Conjunctiva Clear, EOM Intact HENT: Yes: Atraumatic, Normocephalic Neck: Yes: Supple, Trachea Midline Cardiovascular: Yes: Tachycardia, S1, S2. No: JVD, Murmur Respiratory: Yes: Regular, CTA Bilaterally Gastrointestinal: Yes: Normal Bowel Sounds, Soft Edema: No Peripheral Pulses WNL: Yes Labs: CBC, BMP 08/24/18 06:00 08/24/18 06:00 INR, PTT INR 1.05 (0.83-1.09) 08/22/18 20:40 Problem List - Problems (1) Cardiomyopathy Code(s): I42.9 - CARDIOMYOPATHY, UNSPECIFIED (2) New onset a-fib Code(s): I48.91 - UNSPECIFIED ATRIAL FIBRILLATION Assessment/Plan 57 year old with a past medical history of HTN and hemochromatosis admitted with a 2 week h/o SOB, palpitations, found to be in afib with RVR up to 170bpm. Pt was seen and examined today in [facility]. states he is feeling better since admission. states that for the past 2 weeks he has had a mild cough and chest congestion and thought he had a cold so he took some over the counter meds as well as an albuterol nebulizer. He was his PMD yesterday and was found to be in afib with RVR. Echocardiogram is technically limited but showed dilated LV anf RV with severe diffuse hypokinesis. Afib with RVR-newly diagnosed, unknown duration -HR is elevated. -Increase metoprolol 50mg bid. -continue Diltiazem and Eliquis. -May consider LOUISE DCCV Cardiomyopathy possibly due to tachycardia induced myopathy, hemochromatosis but would RO CAD and needs Rt and Lt heart cath. rpeat echo to assess MR severity. Advised transfer to [facility] for cardiac cath and MRI. Family to decide and get back to me.
[2018-08-24] MEDS ORDERED: ALPRAZolam 0.25 MG TABLET PO ONE (15:30)
[2018-08-24] MEDS: METOPROLOL TARTRATE 50 MG TABLET (FP) PO SCH ×2 (16:03→21:35)
[2018-08-24] MEDS: DIGOXIN 0.25 MG TABLET (FP) PO SCH (17:14)
[2018-08-24] MEDS ORDERED: MELATONIN 5 MG TABLETS PO ONE (21:30)
[2018-08-25] MEDS: dilTIAZem HCL 60 MG TABLET (FP) PO SCH ×2 (05:37→12:57)
[2018-08-25] MEDS: METOPROLOL TARTRATE 5 MG/5 ML VIAL IVPUSH PRN ×3 (06:26→21:23)
--- NOTE | 2018-08-25 07:31 | PN ---
Progress Note, Physician Chief Complaint: AWAKE ALERT BEDSIDE C/O BACK PAIN DENIES CP OR SOB - Current Medication List Current Medications: Active Medications Apixaban (Eliquis -) 5 mg PO BID [facility] Last Admin: 08/24/18 21:35 Dose: 5 mg Cyclobenzaprine HCl (Flexeril -) 5 mg PO TID PRN PRN Reason: BACK PAIN Last Admin: 08/24/18 21:37 Dose: 5 mg Digoxin (Lanoxin -) 0.25 mg PO DAILY [facility] Last Admin: 08/24/18 17:14 Dose: 0.25 mg Diltiazem HCl (Cardizem -) 60 mg PO Q6HPO [facility] Last Admin: 08/25/18 05:37 Dose: 60 mg Metoprolol Tartrate (Lopressor Injection -) 5 mg IVPUSH Q4H PRN PRN Reason: TACHYCARDIA Last Admin: 08/25/18 06:26 Dose: 5 mg Metoprolol Tartrate (Lopressor -) 50 mg PO BID [facility] Last Admin: 08/24/18 21:35 Dose: 50 mg Tramadol HCl (Ultram -) 50 mg PO Q6H PRN PRN Reason: PAIN LEVEL 6-10 Last Admin: 08/24/18 13:14 Dose: 50 mg - Objective Vital Signs: Vital Signs Temperature 98.1 F 08/25/18 06:26 Pulse Rate 141 H 08/25/18 06:26 Respiratory Rate 16 08/25/18 06:26 Blood Pressure 144/86 08/25/18 06:26 O2 Sat by Pulse Oximetry (%) 96 08/24/18 09:20 Constitutional: Yes: No Distress Eyes: Yes: WNL HENT: Yes: WNL Neck: Yes: WNL Cardiovascular: Yes: Tachycardia, Pulse Irregular Respiratory: Yes: WNL Gastrointestinal: Yes: WNL Genitourinary: Yes: WNL Musculoskeletal: Yes: Back Pain Extremities: Yes: WNL Edema: No Peripheral Pulses WNL: Yes Integumentary: Yes: WNL Wound/Incision: Yes: Clean/Dry Neurological: Yes: WNL ...Motor Strength: WNL Psychiatric: Yes: WNL Labs: CBC, BMP 08/24/18 06:00 08/24/18 06:00 INR, PTT INR 1.05 (0.83-1.09) 08/22/18 20:40 Problem List - Problems (1) Cardiomyopathy Code(s): I42.9 - CARDIOMYOPATHY, UNSPECIFIED Qualifiers: Cardiomyopathy type: unspecified Qualified Code(s): I42.9 - Cardiomyopathy , unspecified (2) Hemochromatosis Code(s): E83.119 - HEMOCHROMATOSIS, UNSPECIFIED Qualifiers: Hemochromatosis type: unspecified Qualified Code(s): E83.119 - Hemochromatosis, unspecified (3) New onset a-fib Code(s): I48.91 - UNSPECIFIED ATRIAL FIBRILLATION (4) CARMEL (obstructive sleep apnea) Code(s): G47.33 - OBSTRUCTIVE SLEEP APNEA (ADULT) (PEDIATRIC) Assessment/Plan PATIENT ON TELEMETRY NO NEW ALARMS STILL TACHY CARDIO EVAL WITH DR CHRISTINE FOR 2ND OPINION GRANTED MONITOR VITALS AND LABS WILL NEED STRESS TEST OR LOUISE TO EVALUATE HEART FUNCTION OOB TO CHAIR NEBS DVT PROPHYLAXIS LIDOCAINE PATCH TO LSPINE FLEXERIL PRN
[2018-08-25 08:06] LABS: SERUM IRON SATURATION 32 % (15-55); TOTAL IRON BINDING CAPACITY 312 ug/dL (250-450); UIBC 212 ug/dL (111-343)
[2018-08-25] MEDS: DIGOXIN 0.25 MG TABLET (FP) PO SCH (09:22)
[2018-08-25] MEDS: APIXABAN 5 MG TABLET PO SCH ×2 (09:23→21:22)
[2018-08-25] MEDS: METOPROLOL TARTRATE 50 MG TABLET (FP) PO SCH (09:23)
[2018-08-25] MEDS: CYCLOBENZAPRINE HCL 10 MG TABLET (FP) PO PRN (09:23)
[2018-08-25] MEDS: traMADol HCL 50 MG TABLET PO PRN ×2 (09:24→19:22)
--- NOTE | 2018-08-25 13:23 | PN ---
Progress Note, Physician History of Present Illness: Requested by family to assume cardiac care. 57 year old with a past medical history of HTN and hemochromatosis admitted with a 2 week h/o SOB, palpitations , exercise intolerance especially with inclines, found to be in afib with RVR up to 170bpm. Echo shows severe systolic dysfunction with severe TR, MR, remains in rapid afib, denies orthopnea. - Current Medication List Current Medications: Active Medications Apixaban (Eliquis -) 5 mg PO BID [facility] Last Admin: 08/25/18 09:23 Dose: 5 mg Cyclobenzaprine HCl (Flexeril -) 5 mg PO TID PRN PRN Reason: BACK PAIN Last Admin: 08/25/18 09:23 Dose: 5 mg Digoxin (Lanoxin -) 0.25 mg PO DAILY [facility] Last Admin: 08/25/18 09:22 Dose: 0.25 mg Diltiazem HCl (Cardizem -) 60 mg PO Q6HPO [facility] Last Admin: 08/25/18 12:57 Dose: 60 mg Metoprolol Tartrate (Lopressor Injection -) 5 mg IVPUSH Q4H PRN PRN Reason: TACHYCARDIA Last Admin: 08/25/18 11:22 Dose: 5 mg Metoprolol Tartrate (Lopressor -) 50 mg PO BID [facility] Last Admin: 08/25/18 09:23 Dose: 50 mg Tramadol HCl (Ultram -) 50 mg PO Q6H PRN PRN Reason: PAIN LEVEL 6-10 Last Admin: 08/25/18 09:24 Dose: 50 mg - Objective Vital Signs: Vital Signs Temperature 98.8 F 08/25/18 10:00 Pulse Rate 127 H 08/25/18 11:22 Respiratory Rate 20 08/25/18 10:00 Blood Pressure 135/75 08/25/18 11:22 O2 Sat by Pulse Oximetry (%) 94 L 08/25/18 11:00 Constitutional: Yes: No Distress, Calm Neck: Yes: Supple Cardiovascular: Yes: Tachycardia, Pulse Irregular, Murmur (2/6 SM) Respiratory: Yes: Regular, CTA Bilaterally Gastrointestinal: Yes: Normal Bowel Sounds, Soft Edema: No Labs: CBC, BMP 08/24/18 06:00 08/24/18 06:00 INR, PTT INR 1.05 (0.83-1.09) 08/22/18 20:40 Problem List - Problems (1) Acute systolic heart failure due to valvular disease Code(s): I50.21 - ACUTE SYSTOLIC (CONGESTIVE) HEART FAILURE; I38 - ENDOCARDITIS , VALVE UNSPECIFIED (2) Cardiomyopathy Code(s): I42.9 - CARDIOMYOPATHY, UNSPECIFIED Qualifiers: Cardiomyopathy type: unspecified Qualified Code(s): I42.9 - Cardiomyopathy , unspecified (3) Hemochromatosis Code(s): E83.119 - HEMOCHROMATOSIS, UNSPECIFIED Qualifiers: Hemochromatosis type: unspecified Qualified Code(s): E83.119 - Hemochromatosis, unspecified (4) New onset a-fib Code(s): I48.91 - UNSPECIFIED ATRIAL FIBRILLATION (5) CARMEL (obstructive sleep apnea) Code(s): G47.33 - OBSTRUCTIVE SLEEP APNEA (ADULT) (PEDIATRIC) Assessment/Plan 08/23/2018 Echo: Normal LV size with severely decreased LV fxn, severe MR, TR 1. Acute systolic heart failure with severe MR, TR. Cardiomyopathy etiology includes tachycardia-induced cardiomyopathy, hemochromatosis but need to r/o CAD with R&LHc once euvolemic 2. Rapid afib 3. Chronic lower back pain 4. Hemochromatosis 5. OSAS suspect P:1. Change Lopressor to carvedilol 6.25 bid with uptitration as tolerated 2. Add Entresto 24/26 bid with uptitration as tolerated 3. D/C digoxin, will consider amiodarone gtt to assist rate-control, may consider LOUISE-guided DCCV if remains rate-control suboptimal 4. IV diuresis and Aldactone 25 qd with monitor diuretic response, renal fxn and electrolytes 5. Outpatient cardiac MRI to r/o infiltrative cardiomyopathy, Lifevest prior to d/c pending reassessment of LV fxn, sleep study
[2018-08-25] MEDS ORDERED: PT OWN MED DRAWER 7, Y5N ONE ×3 (15:00→22:20)
[2018-08-25] MEDS: LIDOCAINE 5% TOPICAL PATCH TP SCH (15:09)
[2018-08-25] MEDS: CARVEDILOL 6.25 MG TABLET (FP) PO SCH ×2 (15:09→21:21)
[2018-08-25] MEDS: FUROSEMIDE 40 MG/4 ML INJECTABLE VIAL IVPUSH SCH (15:10)
[2018-08-25] MEDS: SPIRONOLACTONE 25 MG TABLET (FP) PO SCH (15:10)
[2018-08-25] MEDS: SACUBITRIL/VALSARTAN 24 MG-26 MG TABLET PO SCH ×2 (16:16→21:22)
--- NOTE | 2018-08-25 16:34 | PN ---
Progress Note (short form) - Note Progress Note: Patient seen and examined Denies significant chest pains or SOB Prior cardiac notes reviewed Last Vital Signs Temp Pulse Resp BP Pulse Ox 97.7 F 121 H 18 118/85 98 08/25/18 13:15 08/25/18 13:15 08/25/18 13:15 08/25/18 13:15 08/25/18 13:15 HEENT: REHANA, EOM Intact Oropharynx: No thrush, No mucositis Neck: Supple Cor: irregular Lungs: Clear to P&A Abd: Soft, Normal bowel sounds, No organomegaly Ext:No significant edema Skin: No rashes, Integument intact CBC, BMP 08/24/18 06:00 08/24/18 06:00 Current Medications Generic Name Dose Route Start Last Admin Trade Name Freq PRN Reason Stop Dose Admin Apixaban 5 mg 08/23/18 14:00 08/25/18 09:23 Eliquis - PO 5 mg BID [facility] Administration Carvedilol 6.25 mg 08/25/18 14:00 08/25/18 15:09 Coreg - PO 6.25 mg BID [facility] Administration Cyclobenzaprine HCl 5 mg 08/24/18 11:56 08/25/18 09:23 Flexeril - PO 5 mg TID PRN Administration BACK PAIN Furosemide 40 mg 08/25/18 14:00 08/25/18 15:10 Lasix Injection - IVPUSH 40 mg DAILY [facility] Administration Lidocaine 1 patch 08/25/18 14:00 08/25/18 15:09 Lidoderm Patch - TP 1 patch DAILY [facility] Administration Melatonin 10 mg 08/25/18 22:00 Melatonin PO HS [facility] Metoprolol Tartrate 5 mg 08/23/18 13:15 08/25/18 11:22 Lopressor Injection - IVPUSH 5 mg Q4H PRN Administration TACHYCARDIA Miscellaneous 1 each 08/25/18 22:00 Lidoderm Patch Removal [facility] DAILY@2200 [facility] Sacubitril/Valsartan 1 tab 08/25/18 14:00 08/25/18 16:16 Entresto 24 Mg-26 Mg Tablet PO 1 tab BID [facility] Administration Spironolactone 25 mg 08/25/18 14:00 08/25/18 15:10 Aldactone - PO 25 mg DAILY [facility] Administration Tramadol HCl 50 mg 08/24/18 11:56 08/25/18 09:24 Ultram - PO 50 mg Q6H PRN Administration PAIN LEVEL 6-10 Impression: New onset of atrial fib Hemochromatosis Erythrocytosis Cardiomyopathy CHF sleep apnea Spoke with patient - He has been taking in past testosterone cream which can explain his erythrocytosis . In addition , diagnosed with likely sleep apnea. Will check testosterone levels. Will phlebotomize next week Will need MRI of heart to assess question of cardiac involvement from hemochromatosis
--- NOTE | 2018-08-25 19:05 | PN ---
Progress Note, Physician Chief Complaint: improving symptoms less dyspnea History of Present Illness: new onset afeb,chf,erythrocytosis,htn,history of htn ,testosterone use,filomena and obesity - Current Medication List Current Medications: Active Medications Apixaban (Eliquis -) 5 mg PO BID [facility] Last Admin: 08/25/18 09:23 Dose: 5 mg Carvedilol (Coreg -) 6.25 mg PO BID [facility] Last Admin: 08/25/18 15:09 Dose: 6.25 mg Cyclobenzaprine HCl (Flexeril -) 5 mg PO TID PRN PRN Reason: BACK PAIN Last Admin: 08/25/18 09:23 Dose: 5 mg Furosemide (Lasix Injection -) 40 mg IVPUSH DAILY [facility] Last Admin: 08/25/18 15:10 Dose: 40 mg Lidocaine (Lidoderm Patch -) 1 patch TP DAILY [facility] Last Admin: 08/25/18 15:09 Dose: 1 patch Melatonin (Melatonin) 10 mg PO [facility] Metoprolol Tartrate (Lopressor Injection -) 5 mg IVPUSH Q4H PRN PRN Reason: TACHYCARDIA Last Admin: 08/25/18 11:22 Dose: 5 mg Miscellaneous (Lidoderm Patch Removal) 1 each [facility] DA[facility]@2200 [facility] Sacubitril/Valsartan (Entresto 24 Mg-26 Mg Tablet) 1 tab PO BID [facility] Last Admin: 08/25/18 16:16 Dose: 1 tab Spironolactone (Aldactone -) 25 mg PO DAILY [facility] Last Admin: 08/25/18 15:10 Dose: 25 mg Tramadol HCl (Ultram -) 50 mg PO Q6H PRN PRN Reason: PAIN LEVEL 6-10 Last Admin: 08/25/18 09:24 Dose: 50 mg - Objective Vital Signs: Vital Signs Temperature 97.7 F 08/25/18 13:15 Pulse Rate 121 H 08/25/18 13:15 Respiratory Rate 18 08/25/18 13:15 Blood Pressure 118/85 08/25/18 13:15 O2 Sat by Pulse Oximetry (%) 98 08/25/18 13:15 Constitutional: Yes: Well Nourished Eyes: Yes: EOM Intact HENT: Yes: Normocephalic Neck: Yes: Trachea Midline Cardiovascular: Yes: Pulse Irregular Respiratory: Yes: CTA Bilaterally Gastrointestinal: Yes: Normal Bowel Sounds ...Rectal Exam: Yes: Deferred Genitourinary: Yes: WNL Breast(s): Yes: WNL Musculoskeletal: Yes: WNL Extremities: Yes: WNL Integumentary: Yes: WNL Psychiatric: Yes: Alert, Oriented Labs: CBC, BMP 08/24/18 06:00 08/24/18 06:00 INR, PTT INR 1.05 (0.83-1.09) 08/22/18 20:40 Problem List - Problems (1) FILOMENA (obstructive sleep apnea) Code(s): G47.33 - OBSTRUCTIVE SLEEP APNEA (ADULT) (PEDIATRIC) (2) New onset a-fib Code(s): I48.91 - UNSPECIFIED ATRIAL FIBRILLATION (3) Hemochromatosis Code(s): E83.119 - HEMOCHROMATOSIS, UNSPECIFIED Qualifiers: Hemochromatosis type: unspecified Qualified Code(s): E83.119 - Hemochromatosis, unspecified Assessment/Plan Current Active Problems Acute systolic heart failure due to valvular disease (Acute) Cardiomyopathy (Acute) Hemochromatosis (Acute) New onset a-fib (Acute) FILOMENA (obstructive sleep apnea) (Acute) ertyhrocytosis Laboratory Results - last 24 hr 08/24/18 08/25/18 08/25/18 06:00 06:00 06:00 Hemoglobin A1c % 6.2 Iron 100 TIBC 312 Iron Saturation 32 Free T4 1.09 Laboratory Tests 08/24/18 08/25/18 06:00 06:00 Sodium 141 Potassium 3.8 Chloride 104 Carbon Dioxide 26 Anion Gap 11 BUN 15 Creatinine 1.2 Random Glucose 104 Hemoglobin A1c % 6.2 Calcium 8.9 plan: follow up hb/hct phlebotomy as per hematology
[2018-08-25] MEDS: MELATONIN 5 MG TABLETS PO SCH (21:21)
[2018-08-25] MEDS: LIDOCAINE PATCH REMOVAL MC SCH (21:23)
[2018-08-26] MEDS: METOPROLOL TARTRATE 5 MG/5 ML VIAL IVPUSH PRN ×6 (01:58→22:08)
[2018-08-26] MEDS: traMADol HCL 50 MG TABLET PO PRN ×2 (01:59→17:52)
[2018-08-26] MEDS: CYCLOBENZAPRINE HCL 10 MG TABLET (FP) PO PRN ×2 (01:59→21:41)
--- NOTE | 2018-08-26 08:19 | PN ---
Progress Note, Physician Chief Complaint: RAPID HEART RATE TRANSFERRED TO [address] [place] [address] ON AMIODARONE DRIP - Current Medication List Current Medications: Active Medications Apixaban (Eliquis -) 5 mg PO BID [facility] Last Admin: 08/25/18 21:22 Dose: 5 mg Carvedilol (Coreg -) 6.25 mg PO BID [facility] Last Admin: 08/25/18 21:21 Dose: 6.25 mg Cyclobenzaprine HCl (Flexeril -) 5 mg PO TID PRN PRN Reason: BACK PAIN Last Admin: 08/26/18 01:59 Dose: 5 mg Furosemide (Lasix Injection -) 40 mg IVPUSH DAILY [facility] Last Admin: 08/25/18 15:10 Dose: 40 mg Lidocaine (Lidoderm Patch -) 1 patch TP DAILY [facility] Last Admin: 08/25/18 15:09 Dose: 1 patch Melatonin (Melatonin) 10 mg PO HS [facility] Last Admin: 08/25/18 21:21 Dose: 10 mg Metoprolol Tartrate (Lopressor Injection -) 5 mg IVPUSH Q4H PRN PRN Reason: TACHYCARDIA Last Admin: 08/26/18 06:40 Dose: 5 mg Miscellaneous (Lidoderm Patch Removal) 1 each [facility] DAILY@2200 [facility] Last Admin: 08/25/18 21:23 Dose: 1 each Sacubitril/Valsartan (Entresto 24 Mg-26 Mg Tablet) 1 tab PO BID [facility] Last Admin: 08/25/18 21:22 Dose: 1 tab Spironolactone (Aldactone -) 25 mg PO DAILY [facility] Last Admin: 08/25/18 15:10 Dose: 25 mg Tramadol HCl (Ultram -) 50 mg PO Q6H PRN PRN Reason: PAIN LEVEL 6-10 Last Admin: 08/26/18 01:59 Dose: 50 mg - Objective Vital Signs: Vital Signs Temperature 98.2 F 08/26/18 06:31 Pulse Rate 165 H 08/26/18 06:40 Respiratory Rate 16 08/26/18 06:31 Blood Pressure 103/56 L 08/26/18 06:40 O2 Sat by Pulse Oximetry (%) 98 08/26/18 03:00 Constitutional: Yes: Mild Distress Eyes: Yes: WNL HENT: Yes: WNL Neck: Yes: WNL Cardiovascular: Yes: Tachycardia, Pulse Irregular Respiratory: Yes: WNL Gastrointestinal: Yes: WNL Musculoskeletal: Yes: Back Pain Extremities: Yes: WNL Edema: No Peripheral Pulses WNL: Yes Integumentary: Yes: WNL Wound/Incision: Yes: Clean/Dry Neurological: Yes: WNL ...Motor Strength: WNL Psychiatric: Yes: WNL Labs: CBC, BMP 08/24/18 06:00 INR, PTT INR 1.05 (0.83-1.09) 08/22/18 20:40 Problem List - Problems (1) Cardiomyopathy Code(s): I42.9 - CARDIOMYOPATHY, UNSPECIFIED Qualifiers: Cardiomyopathy type: unspecified Qualified Code(s): I42.9 - Cardiomyopathy , unspecified (2) Hemochromatosis Code(s): E83.119 - HEMOCHROMATOSIS, UNSPECIFIED Qualifiers: Hemochromatosis type: unspecified Qualified Code(s): E83.119 - Hemochromatosis, unspecified (3) New onset a-fib Code(s): I48.91 - UNSPECIFIED ATRIAL FIBRILLATION (4) CARMEL (obstructive sleep apnea) Code(s): G47.33 - OBSTRUCTIVE SLEEP APNEA (ADULT) (PEDIATRIC) (5) Acute systolic heart failure due to valvular disease Code(s): I50.21 - ACUTE SYSTOLIC (CONGESTIVE) HEART FAILURE; I38 - ENDOCARDITIS , VALVE UNSPECIFIED Assessment/Plan AMIODARONE DRIP STARTED TELEMETRY MONITORING CHECK LABS CARDIOLOGY FOLLOW UP AC
[2018-08-26 08:24] LABS: ANION GAP 14 MMOL/L (8-16); BLOOD UREA NITROGEN 20 mg/dL (7-18); CALCIUM 9.1 mg/dL (8.5-10.1); CHLORIDE 105 mmol/L (98-107); CHOLESTEROL 195 mg/dL (50-200); CO2 23 mmol/L (21-32); CREATININE 1.4 mg/dL (0.55-1.3); GLUCOSE,RANDOM 123 mg/dL (74-106); HDL CHOLESTEROL 43 mg/dL (40-60); POTASSIUM 3.7 mmol/L (3.5-5.1); SODIUM 142 mmol/L (136-145); TRIGLYCERIDES 179 mg/dL (0-150)
--- NOTE | 2018-08-26 08:41 | PN ---
Progress Note, Physician Chief Complaint: Events noted AF with RVR at 150-170s History of Present Illness: Patient was seen and examined. Awake and alert. Chart was reviewed Denies chest pain. Denies SOB and does not complain of palpitations Sweating - Current Medication List Current Medications: Active Medications Apixaban (Eliquis -) 5 mg PO BID [facility] Last Admin: 08/25/18 21:22 Dose: 5 mg Carvedilol (Coreg -) 6.25 mg PO BID [facility] Last Admin: 08/25/18 21:21 Dose: 6.25 mg Cyclobenzaprine HCl (Flexeril -) 5 mg PO TID PRN PRN Reason: BACK PAIN Last Admin: 08/26/18 01:59 Dose: 5 mg Furosemide (Lasix Injection -) 40 mg IVPUSH DAILY [facility] Last Admin: 08/25/18 15:10 Dose: 40 mg Lidocaine (Lidoderm Patch -) 1 patch TP DAILY [facility] Last Admin: 08/25/18 15:09 Dose: 1 patch Melatonin (Melatonin) 10 mg PO HS [facility] Last Admin: 08/25/18 21:21 Dose: 10 mg Metoprolol Tartrate (Lopressor Injection -) 5 mg IVPUSH Q4H PRN PRN Reason: TACHYCARDIA Last Admin: 08/26/18 06:40 Dose: 5 mg Miscellaneous (Lidoderm Patch Removal) 1 each [facility] DAILY@2200 [facility] Last Admin: 08/25/18 21:23 Dose: 1 each Sacubitril/Valsartan (Entresto 24 Mg-26 Mg Tablet) 1 tab PO BID [facility] Last Admin: 08/25/18 21:22 Dose: 1 tab Spironolactone (Aldactone -) 25 mg PO DAILY [facility] Last Admin: 08/25/18 15:10 Dose: 25 mg Tramadol HCl (Ultram -) 50 mg PO Q6H PRN PRN Reason: PAIN LEVEL 6-10 Last Admin: 08/26/18 01:59 Dose: 50 mg - Objective Vital Signs: Vital Signs Temperature 98.2 F 08/26/18 06:31 Pulse Rate 165 H 08/26/18 06:40 Respiratory Rate 16 08/26/18 06:31 Blood Pressure 103/56 L 08/26/18 06:40 O2 Sat by Pulse Oximetry (%) 98 08/26/18 03:00 Neck: Yes: Supple Cardiovascular: Yes: Tachycardia, Pulse Irregular, S1, S2 Respiratory: Yes: Diminished Gastrointestinal: Yes: Normal Bowel Sounds, Soft. No: Tenderness Edema: No Labs: CBC, BMP 08/24/18 06:00 08/26/18 06:35 Problem List - Problems (1) Acute systolic heart failure due to valvular disease Code(s): I50.21 - ACUTE SYSTOLIC (CONGESTIVE) HEART FAILURE; I38 - ENDOCARDITIS , VALVE UNSPECIFIED (2) Cardiomyopathy Code(s): I42.9 - CARDIOMYOPATHY, UNSPECIFIED Qualifiers: Cardiomyopathy type: unspecified Qualified Code(s): I42.9 - Cardiomyopathy , unspecified (3) Hemochromatosis Code(s): E83.119 - HEMOCHROMATOSIS, UNSPECIFIED Qualifiers: Hemochromatosis type: unspecified Qualified Code(s): E83.119 - Hemochromatosis, unspecified (4) New onset a-fib Code(s): I48.91 - UNSPECIFIED ATRIAL FIBRILLATION (5) CARMEL (obstructive sleep apnea) Code(s): G47.33 - OBSTRUCTIVE SLEEP APNEA (ADULT) (PEDIATRIC) Assessment/Plan 1. Acute systolic heart failure with severe MR, TR. Cardiomyopathy etiology includes tachycardia-induced cardiomyopathy, hemochromatosis but need to r/o CAD 2. AF with RVR 3. Chronic lower back pain 4. Hemochromatosis 5. Possible OSAS PLAN: 1. Continue Carvedilol 6.25 bid with uptitration as tolerated - If rate control poses a problem, may switch it back to extended release Metoprolol 2. Continue Entresto 24/ bid with uptitration as tolerated 3. Consider Amiodarone drip to assist rate-control and may consider LOUISE-guided DCCV on Tuesday if AF rate control poses a problem 4. IV diuresis and Aldactone 25 qd with monitor renal function and electrolytes 5. Consider cardiac MRI to r/o infiltrative cardiomyopathy, but can be done as outpatient. 6. Lifevest prior to discharge pending reassessment of LV function 7. Consider sleep study as outpatient 8. Eventually will need right and left heart catheterization once euvolemic Further plans are to follow Shawn Robins MD
[2018-08-26] MEDS ORDERED: AMIODARONE IN DEXTROSE,ISO-OSM 150 MG/100 ML BAG IVPB ONE (08:43)
[2018-08-26] MEDS ORDERED: AMIODARONE HCL 150 MG/3 ML VIAL IVPB ONE (08:45)
[2018-08-26] MEDS ORDERED: PT OWN MED DRAWER 7, Y5N ONE (09:58)
[2018-08-26] MEDS: AMIODARONE IN DEXTROSE,ISO-OSM 360 MG/200 ML BAG IVPB SCH ×2 (10:40→22:07)
[2018-08-26] MEDS: APIXABAN 5 MG TABLET PO SCH ×2 (11:03→21:41)
[2018-08-26] MEDS: LIDOCAINE 5% TOPICAL PATCH TP SCH (11:03)
[2018-08-26] MEDS: CARVEDILOL 6.25 MG TABLET (FP) PO SCH ×2 (11:03→21:41)
[2018-08-26] MEDS: FUROSEMIDE 40 MG/4 ML INJECTABLE VIAL IVPUSH SCH (11:04)
[2018-08-26] MEDS: SACUBITRIL/VALSARTAN 24 MG-26 MG TABLET PO SCH ×2 (11:05→21:44)
[2018-08-26] MEDS: SPIRONOLACTONE 25 MG TABLET (FP) PO SCH (11:05)
[2018-08-26] MEDS: MELATONIN 5 MG TABLETS PO SCH (21:42)
[2018-08-26] MEDS: LIDOCAINE PATCH REMOVAL MC SCH ×2 (21:56→21:57)
[2018-08-27] MEDS: METOPROLOL TARTRATE 5 MG/5 ML VIAL IVPUSH PRN ×2 (02:14→06:33)
[2018-08-27] MEDS: traMADol HCL 50 MG TABLET PO PRN (02:19)
[2018-08-27] MEDS ORDERED: PT OWN MED DRAWER 7, Y5N ONE ×3 (09:30→10:43)
--- NOTE | 2018-08-27 09:31 | PN ---
Progress Note, Physician Chief Complaint: Events noted AF with RVR still even though he has received Amiodarone drip and IV Metoprolol History of Present Illness: Patient was seen and examined. Awake and alert. Chart was reviewed Denies chest pain. Denies SOB and does not complain of palpitations, sitting in chair Sweating reported during the night - Current Medication List Current Medications: Active Medications Apixaban (Eliquis -) 5 mg PO BID [facility] Last Admin: 08/26/18 21:41 Dose: 5 mg Carvedilol (Coreg -) 6.25 mg PO BID [facility] Last Admin: 08/26/18 21:41 Dose: 6.25 mg Cyclobenzaprine HCl (Flexeril -) 5 mg PO TID PRN PRN Reason: BACK PAIN Last Admin: 08/26/18 21:41 Dose: 5 mg Furosemide (Lasix Injection -) 40 mg IVPUSH DAILY [facility] Last Admin: 08/26/18 11:04 Dose: 40 mg Amiodarone HCl/Dextrose (Nexterone 360 Mg/200 Ml Bag) 360 mg in 200 mls @ 16.667 mls/hr IVPB TITR [facility]; Protocol Last Admin: 08/26/18 22:07 Dose: 0.5 mg/min, 16.667 mls/hr Lidocaine (Lidoderm Patch -) 1 patch TP DAILY [facility] Last Admin: 08/26/18 11:03 Dose: 1 patch Melatonin (Melatonin) 10 mg PO HS [facility] Last Admin: 08/26/18 21:42 Dose: 10 mg Metoprolol Tartrate (Lopressor Injection -) 5 mg IVPUSH Q4H PRN PRN Reason: TACHYCARDIA Last Admin: 08/27/18 06:33 Dose: 5 mg Miscellaneous (Lidoderm Patch Removal) 1 each [facility] DAILY@2200 [facility] Last Admin: 08/26/18 21:57 Dose: 1 each Sacubitril/Valsartan (Entresto 24 Mg-26 Mg Tablet) 1 tab PO BID [facility] Last Admin: 08/26/18 21:44 Dose: 1 tab Spironolactone (Aldactone -) 25 mg PO DAILY [facility] Last Admin: 08/26/18 11:05 Dose: 25 mg Tramadol HCl (Ultram -) 50 mg PO Q6H PRN PRN Reason: PAIN LEVEL 6-10 Last Admin: 08/27/18 02:19 Dose: 50 mg - Objective Vital Signs: Vital Signs Temperature 97.8 F 08/27/18 08:49 Pulse Rate 147 H 08/27/18 08:49 Respiratory Rate 20 08/27/18 08:49 Blood Pressure 114/90 08/27/18 08:49 O2 Sat by Pulse Oximetry (%) 95 08/27/18 03:00 Eyes: Yes: PERRL HENT: Yes: Atraumatic Neck: Yes: Supple Cardiovascular: Yes: Tachycardia, Pulse Irregular, S1, S2 Respiratory: Yes: Diminished Gastrointestinal: Yes: Normal Bowel Sounds, Soft. No: Tenderness Edema: No Additional Findings/Remarks: Review of Systems Cardiovascular: denies: chest pain, SOB, (+) palpitations Respiratory: denies: denies: Cough or Sputum Production Gastrointestinal: denies: Nausea, Vomiting, Diarrhea, Constipation or Abdominal Discomfort Musculoskeletal: denies: joint pains Endocrine: No Symptoms Reported Neuro: denies syncope, seizures Problem List - Problems (1) Acute systolic heart failure due to valvular disease Code(s): I50.21 - ACUTE SYSTOLIC (CONGESTIVE) HEART FAILURE; I38 - ENDOCARDITIS , VALVE UNSPECIFIED (2) Cardiomyopathy Code(s): I42.9 - CARDIOMYOPATHY, UNSPECIFIED Qualifiers: Cardiomyopathy type: unspecified Qualified Code(s): I42.9 - Cardiomyopathy , unspecified (3) Hemochromatosis Code(s): E83.119 - HEMOCHROMATOSIS, UNSPECIFIED Qualifiers: Hemochromatosis type: unspecified Qualified Code(s): E83.119 - Hemochromatosis, unspecified (4) New onset a-fib Code(s): I48.91 - UNSPECIFIED ATRIAL FIBRILLATION (5) CARMEL (obstructive sleep apnea) Code(s): G47.33 - OBSTRUCTIVE SLEEP APNEA (ADULT) (PEDIATRIC) Assessment/Plan 1. Acute systolic heart failure with severe MR, TR. Cardiomyopathy etiology includes tachycardia-induced cardiomyopathy, hemochromatosis but need to r/o CAD 2. AF with RVR 3. Chronic lower back pain 4. Hemochromatosis 5. Possible OSAS PLAN: 1. Continue Carvedilol 6.25 bid with uptitration as tolerated - If rate control poses a problem, may switch it back to extended release Metoprolol 2. Continue Entresto 24/26 bid with uptitration as tolerated 3. Continue Amiodarone ip to assist rate-control and may consider LOUISE-guided DCCV on Tuesday if AF rate control poses a problem 4. IV diuresis and Aldactone 25 qd with monitor renal function and electrolytes 5. Consider cardiac MRI to r/o infiltrative cardiomyopathy, but can be done as outpatient. 6. Lifevest prior to discharge pending reassessment of LV function 7. Consider sleep study as outpatient 8. Eventually will need right and left heart catheterization once euvolemic Further plans are to follow Shawn Robins MD
[2018-08-27] MEDS ORDERED: DIGOXIN 0.5 MG/2 ML AMPUL IVPUSH ONE (09:34)
[2018-08-27] MEDS: SPIRONOLACTONE 25 MG TABLET (FP) PO SCH (10:02)
[2018-08-27] MEDS: APIXABAN 5 MG TABLET PO SCH ×2 (10:03→21:13)
[2018-08-27] MEDS: SACUBITRIL/VALSARTAN 24 MG-26 MG TABLET PO SCH ×2 (10:04→21:15)
[2018-08-27] MEDS: LIDOCAINE 5% TOPICAL PATCH TP SCH (10:04)
--- NOTE | 2018-08-27 10:14 | PN ---
Progress Note, Physician Chief Complaint: SOB New onset Afib History of Present Illness: NAD denies palpitations or SOB On Amiodarone drip - Current Medication List Current Medications: Active Medications Apixaban (Eliquis -) 5 mg PO BID [facility] Last Admin: 08/27/18 10:03 Dose: 5 mg Carvedilol (Coreg -) 12.5 mg PO BID [facility] Cyclobenzaprine HCl (Flexeril -) 5 mg PO TID PRN PRN Reason: BACK PAIN Last Admin: 08/26/18 21:41 Dose: 5 mg Furosemide (Lasix Injection -) 40 mg IVPUSH DAILY [facility] Last Admin: 08/26/18 11:04 Dose: 40 mg Amiodarone HCl/Dextrose (Nexterone 360 Mg/200 Ml Bag) 360 mg in 200 mls @ 16.667 mls/hr IVPB TITR [facility]; Protocol Last Admin: 08/26/18 22:07 Dose: 0.5 mg/min, 16.667 mls/hr Lidocaine (Lidoderm Patch -) 1 patch TP DAILY [facility] Last Admin: 08/27/18 10:04 Dose: 1 patch Melatonin (Melatonin) 10 mg PO HS [facility] Last Admin: 08/26/18 21:42 Dose: 10 mg Metoprolol Tartrate (Lopressor Injection -) 5 mg IVPUSH Q4H PRN PRN Reason: TACHYCARDIA Last Admin: 08/27/18 06:33 Dose: 5 mg Miscellaneous (Lidoderm Patch Removal) 1 each MC DAILY@2200 [facility] Last Admin: 08/26/18 21:57 Dose: 1 each Sacubitril/Valsartan (Entresto 24 Mg-26 Mg Tablet) 1 tab PO BID [facility] Last Admin: 08/27/18 10:04 Dose: 1 tab Spironolactone (Aldactone -) 25 mg PO DAILY [facility] Last Admin: 08/27/18 10:02 Dose: 25 mg Tramadol HCl (Ultram -) 50 mg PO Q6H PRN PRN Reason: PAIN LEVEL 6-10 Last Admin: 08/27/18 02:19 Dose: 50 mg - Objective Vital Signs: Vital Signs Temperature 97.8 F 08/27/18 08:49 Pulse Rate 147 H 08/27/18 08:49 Respiratory Rate 20 08/27/18 08:49 Blood Pressure 114/90 08/27/18 08:49 O2 Sat by Pulse Oximetry (%) 95 08/27/18 03:00 Constitutional: Yes: Well Nourished, No Distress, Calm Cardiovascular: Yes: Tachycardia Respiratory: Yes: Regular Gastrointestinal: Yes: Normal Bowel Sounds, Soft Genitourinary: Yes: WNL Musculoskeletal: Yes: WNL Extremities: Yes: WNL Edema: No Peripheral Pulses WNL: Yes Neurological: Yes: Alert, Oriented Psychiatric: Yes: Alert, Oriented Labs: CBC, BMP 08/24/18 06:00 08/26/18 06:35 INR, PTT INR 1.05 (0.83-1.09) 08/22/18 20:40 Problem List - Problems (1) New onset a-fib Assessment/Plan: -echo shows severely reduced LV systolic function -Started on Eliquis -Tele monitoring -Seen by cardiology -On Amiodarone drip -LOUISE-guided DCCV on Tuesday if AF rate control poses a problem -On Carvedilol 12.5 mg po bid Code(s): I48.91 - UNSPECIFIED ATRIAL FIBRILLATION (2) Acute systolic heart failure due to valvular disease Assessment/Plan: -Eventually will need right and left heart catheterization once euvolemic as per cardiology -Tele -Cardiology consult -echo reviewed Code(s): I50.21 - ACUTE SYSTOLIC (CONGESTIVE) HEART FAILURE; I38 - ENDOCARDITIS , VALVE UNSPECIFIED (3) Cardiomyopathy Assessment/Plan: -cardiac MRI to r/o infiltrative cardiomyopathy,can be done as outpatient. -cardiology on board Code(s): I42.9 - CARDIOMYOPATHY, UNSPECIFIED Qualifiers: Cardiomyopathy type: unspecified Qualified Code(s): I42.9 - Cardiomyopathy , unspecified (4) Hemochromatosis Assessment/Plan: -Seen by Hematology -Therapeutic phlebotomy next week Code(s): E83.119 - HEMOCHROMATOSIS, UNSPECIFIED Qualifiers: Hemochromatosis type: unspecified Qualified Code(s): E83.119 - Hemochromatosis, unspecified (5) CARMEL (obstructive sleep apnea) Assessment/Plan: -sleep study as outpatient Code(s): G47.33 - OBSTRUCTIVE SLEEP APNEA (ADULT) (PEDIATRIC) (6) Hyperlipidemia Assessment/Plan: -LDL 131, goal <70 mg/dl -Add atorvastatin 10 mg po HS Code(s): E78.5 - HYPERLIPIDEMIA, UNSPECIFIED Assessment/Plan see problem list
[2018-08-27] MEDS: CARVEDILOL 12.5 MG TABLET (FP) PO SCH ×2 (10:23→21:13)
[2018-08-27] MEDS: AMIODARONE IN DEXTROSE,ISO-OSM 360 MG/200 ML BAG IVPB SCH ×2 (10:24→22:48)
[2018-08-27] MEDS: FUROSEMIDE 40 MG/4 ML INJECTABLE VIAL IVPUSH SCH (10:24)
[2018-08-27] MEDS: ALPRAZolam 0.25 MG TABLET PO PRN ×2 (13:24→23:55)
[2018-08-27] MEDS: CYCLOBENZAPRINE HCL 10 MG TABLET (FP) PO PRN ×2 (15:46→21:18)
[2018-08-27] MEDS: ATORVASTATIN CA 10 MG TABLET (FP) PO SCH (21:14)
[2018-08-27] MEDS: MELATONIN 5 MG TABLETS PO SCH (21:15)
[2018-08-27] MEDS: LIDOCAINE PATCH REMOVAL MC SCH (21:56)
[2018-08-28] MEDS: METOPROLOL TARTRATE 5 MG/5 ML VIAL IVPUSH PRN ×2 (03:00→09:33)
[2018-08-28 06:48] LABS: BASO % 0.7 % (0-2.0); HEMATOCRIT 60.5 % (35.4-49); LYMPH % 13.8 % (8-40); MCH 29.3 pg (25.7-33.7); MCHC 33.2 g/dl (32.0-35.9); MEAN CELL VOLUME 88.3 fl (80-96); MEAN PLT VOLUME 9.3 fl (7.5-11.1); MONO % 9.1 % (3.8-10.2); NEUT % 74.4 % (42.8-82.8); PLATELET COUNT 250 K/MM3 (134-434); RBC 6.85 M/mm3 (4.00-5.60); WHITE BLOOD COUNT 13.2 K/mm3 (4.0-10.0)
[2018-08-28 06:59] LABS: ALBUMIN 3.4 g/dl (3.4-5.0); ALK PHOS 84 U/L (45-117); ANION GAP 12 MMOL/L (8-16); BLOOD UREA NITROGEN 26 mg/dL (7-18); CALCIUM 9.3 mg/dL (8.5-10.1); CHLORIDE 106 mmol/L (98-107); CO2 24 mmol/L (21-32); CREATININE 1.6 mg/dL (0.55-1.3); GLUCOSE,RANDOM 120 mg/dL (74-106); POTASSIUM 3.8 mmol/L (3.5-5.1); SGOT/AST 24 U/L (15-37); SGPT/ALT 51 U/L (13-61); SODIUM 142 mmol/L (136-145); TOT PROT 6.3 g/dl (6.4-8.2)
[2018-08-28 08:14] LABS: HEMOGLOBIN 20.1 GM/dL (11.7-16.9)
--- NOTE | 2018-08-28 08:42 | PN ---
Progress Note, Physician - Current Medication List Current Medications: Active Medications Alprazolam (Xanax -) 0.5 mg PO BID PRN PRN Reason: ANXIETY Last Admin: 08/27/18 23:55 Dose: 0.5 mg Apixaban (Eliquis -) 5 mg PO BID [facility] Last Admin: 08/27/18 21:13 Dose: 5 mg Atorvastatin Calcium (Lipitor -) 10 mg PO HS [facility] Last Admin: 08/27/18 21:14 Dose: 10 mg Carvedilol (Coreg -) 12.5 mg PO BID [facility] Last Admin: 08/27/18 21:13 Dose: 12.5 mg Cyclobenzaprine HCl (Flexeril -) 5 mg PO TID PRN PRN Reason: BACK PAIN Last Admin: 08/27/18 21:18 Dose: 5 mg Furosemide (Lasix Injection -) 40 mg IVPUSH DAILY [facility] Last Admin: 08/27/18 10:24 Dose: Not Given Amiodarone HCl/Dextrose (Nexterone 360 Mg/200 Ml Bag) 360 mg in 200 mls @ 16.667 mls/hr IVPB TITR [facility]; Protocol Last Admin: 08/27/18 22:48 Dose: 0.5 mg/min, 16.667 mls/hr Lidocaine (Lidoderm Patch -) 1 patch TP DAILY [facility] Last Admin: 08/27/18 10:04 Dose: 1 patch Melatonin (Melatonin) 10 mg PO HS [facility] Last Admin: 08/27/18 21:15 Dose: 10 mg Metoprolol Tartrate (Lopressor Injection -) 5 mg IVPUSH Q4H PRN PRN Reason: TACHYCARDIA Last Admin: 08/28/18 03:00 Dose: 5 mg Miscellaneous (Lidoderm Patch Removal) 1 each MC DAILY@2200 [facility] Last Admin: 08/27/18 21:56 Dose: 1 each Sacubitril/Valsartan (Entresto 24 Mg-26 Mg Tablet) 1 tab PO BID [facility] Last Admin: 08/27/18 21:15 Dose: 1 tab Spironolactone (Aldactone -) 25 mg PO DAILY [facility] Last Admin: 08/27/18 10:02 Dose: 25 mg - Objective Vital Signs: Vital Signs Temperature 97.8 F 08/28/18 06:00 Pulse Rate 122 H 08/28/18 06:00 Respiratory Rate 18 08/28/18 06:00 Blood Pressure 104/72 08/28/18 06:00 O2 Sat by Pulse Oximetry (%) 96 08/27/18 21:00 Cardiovascular: Yes: Tachycardia, Pulse Irregular, S1, S2 Respiratory: Yes: Regular, CTA Bilaterally Gastrointestinal: Yes: Normal Bowel Sounds, Soft Labs: CBC, BMP 08/28/18 05:30 08/28/18 05:30 INR, PTT INR 1.05 (0.83-1.09) 08/22/18 20:40 Assessment/Plan - Problems (1) New onset a-fib Assessment/Plan: -echo shows severely reduced LV systolic function -Started on Eliquis -Tele monitoring -Seen by cardiology -On Amiodarone drip -LOUISE-guided DCCV on Tuesday if AF rate control poses a problem -On Carvedilol 12.5 mg po bid Code(s): I48.91 - UNSPECIFIED ATRIAL FIBRILLATION (2) Acute systolic heart failure due to valvular disease Assessment/Plan: -Eventually will need right and left heart catheterization once euvolemic as per cardiology -Tele -Cardiology consult -echo reviewed Code(s): I50.21 - ACUTE SYSTOLIC (CONGESTIVE) HEART FAILURE; I38 - ENDOCARDITIS , VALVE UNSPECIFIED (3) Cardiomyopathy Assessment/Plan: -cardiac MRI to r/o infiltrative cardiomyopathy,can be done as outpatient. -cardiology on board Code(s): I42.9 - CARDIOMYOPATHY, UNSPECIFIED Qualifiers: Cardiomyopathy type: unspecified Qualified Code(s): I42.9 - Cardiomyopathy , unspecified (4) Hemochromatosis Assessment/Plan: -Seen by Hematology -Therapeutic phlebotomy next week Code(s): E83.119 - HEMOCHROMATOSIS, UNSPECIFIED Qualifiers: Hemochromatosis type: unspecified Qualified Code(s): E83.119 - Hemochromatosis, unspecified (5) CARMEL (obstructive sleep apnea) Assessment/Plan: -sleep study as outpatient Code(s): G47.33 - OBSTRUCTIVE SLEEP APNEA (ADULT) (PEDIATRIC) (6) Hyperlipidemia Assessment/Plan: -LDL 131, goal <70 mg/dl -Add atorvastatin 10 mg po HS Code(s): E78.5 - HYPERLIPIDEMIA, UNSPECIFIED Assessment/Plan see problem list
[2018-08-28] MEDS: APIXABAN 5 MG TABLET PO SCH ×2 (09:31→21:38)
[2018-08-28] MEDS: LIDOCAINE 5% TOPICAL PATCH TP SCH (09:31)
[2018-08-28] MEDS: CARVEDILOL 12.5 MG TABLET (FP) PO SCH ×2 (09:31→21:38)
[2018-08-28] MEDS: SPIRONOLACTONE 25 MG TABLET (FP) PO SCH (09:32)
[2018-08-28] MEDS: SACUBITRIL/VALSARTAN 24 MG-26 MG TABLET PO SCH ×2 (09:36→21:38)
[2018-08-28] MEDS: FUROSEMIDE 40 MG/4 ML INJECTABLE VIAL IVPUSH SCH (09:48)
--- NOTE | 2018-08-28 09:51 | PN ---
Progress Note, Physician Chief Complaint: Events noted AF with RVR still even though he has received Amiodarone drip and IV Metoprolol History of Present Illness: Patient was seen and examined. Awake and alert. Chart was reviewed Denies chest pain. Denies SOBor palpitations Could not schedule LOUISE/cardioversion due to unavailability of slot in Endo unit - Current Medication List Current Medications: Active Medications Alprazolam (Xanax -) 0.5 mg PO BID PRN PRN Reason: ANXIETY Last Admin: 08/27/18 23:55 Dose: 0.5 mg Apixaban (Eliquis -) 5 mg PO BID [facility] Last Admin: 08/28/18 09:31 Dose: 5 mg Atorvastatin Calcium (Lipitor -) 10 mg PO [facility] Last Admin: 08/27/18 21:14 Dose: 10 mg Carvedilol (Coreg -) 12.5 mg PO BID [facility] Last Admin: 08/28/18 09:31 Dose: 12.5 mg Cyclobenzaprine HCl (Flexeril -) 5 mg PO TID PRN PRN Reason: BACK PAIN Last Admin: 08/27/18 21:18 Dose: 5 mg Furosemide (Lasix Injection -) 40 mg IVPUSH DAILY [facility] Last Admin: 08/28/18 09:48 Dose: Not Given Amiodarone HCl/Dextrose (Nexterone 360 Mg/200 Ml Bag) 360 mg in 200 mls @ 16.667 mls/hr IVPB TITR [facility]; Protocol Last Admin: 08/27/18 22:48 Dose: 0.5 mg/min, 16.667 mls/hr Lidocaine (Lidoderm Patch -) 1 patch TP DAILY [facility] Last Admin: 08/28/18 09:31 Dose: 1 patch Melatonin (Melatonin) 10 mg PO [facility] Last Admin: 08/27/18 21:15 Dose: 10 mg Metoprolol Tartrate (Lopressor Injection -) 5 mg IVPUSH Q4H PRN PRN Reason: TACHYCARDIA Last Admin: 08/28/18 09:33 Dose: 5 mg Miscellaneous (Lidoderm Patch Removal) 1 each MC DAILY@2200 [facility] Last Admin: 08/27/18 21:56 Dose: 1 each Sacubitril/Valsartan (Entresto 24 Mg-26 Mg Tablet) 1 tab PO BID [facility] Last Admin: 08/28/18 09:36 Dose: 1 tab Spironolactone (Aldactone -) 25 mg PO DAILY [facility] Last Admin: 08/28/18 09:32 Dose: 25 mg - Objective Vital Signs: Vital Signs Temperature 97.8 F 08/28/18 06:00 Pulse Rate 152 H 08/28/18 09:33 Respiratory Rate 18 08/28/18 06:00 Blood Pressure 128/61 08/28/18 09:33 O2 Sat by Pulse Oximetry (%) 96 08/27/18 21:00 Eyes: Yes: PERRL HENT: Yes: Atraumatic Neck: Yes: Supple Cardiovascular: Yes: Tachycardia, Pulse Irregular, S1, S2 Respiratory: Yes: CTA Bilaterally Gastrointestinal: Yes: Normal Bowel Sounds, Soft. No: Tenderness Edema: No Additional Findings/Remarks: Review of Systems Cardiovascular: denies: chest pain, SOB, (+) palpitations Respiratory: denies: denies: Cough or Sputum Production Gastrointestinal: denies: Nausea, Vomiting, Diarrhea, Constipation or Abdominal Discomfort Musculoskeletal: denies: joint pains Endocrine: No Symptoms Reported Neuro: denies syncope, seizures Labs: CBC, BMP 08/28/18 05:30 08/28/18 05:30 Problem List - Problems (1) Acute systolic heart failure due to valvular disease Code(s): I50.21 - ACUTE SYSTOLIC (CONGESTIVE) HEART FAILURE; I38 - ENDOCARDITIS , VALVE UNSPECIFIED (2) Cardiomyopathy Code(s): I42.9 - CARDIOMYOPATHY, UNSPECIFIED Qualifiers: Cardiomyopathy type: unspecified Qualified Code(s): I42.9 - Cardiomyopathy , unspecified (3) Hemochromatosis Code(s): E83.119 - HEMOCHROMATOSIS, UNSPECIFIED Qualifiers: Hemochromatosis type: unspecified Qualified Code(s): E83.119 - Hemochromatosis, unspecified (4) New onset a-fib Code(s): I48.91 - UNSPECIFIED ATRIAL FIBRILLATION (5) CARMEL (obstructive sleep apnea) Code(s): G47.33 - OBSTRUCTIVE SLEEP APNEA (ADULT) (PEDIATRIC) Assessment/Plan 1. Acute systolic heart failure with severe MR, TR. Cardiomyopathy etiology includes tachycardia-induced cardiomyopathy, hemochromatosis but need to r/o CAD 2. AF with RVR 3. Chronic lower back pain 4. Hemochromatosis 5. Possible OSAS PLAN: 1. Continue Carvedilol 12.5 BID with uptitration as tolerated - If rate control poses a problem, may switch it back to extended release Metoprolol 2. Continue Entresto bid with uptitration as tolerated 3. Switch Amiodarone to PO instead of the IV drip. Schedule synchronized cardioversion with LOUISE tomorrow AM 4. IV diuresis and Aldactone 25 qd with monitor renal function and electrolytes 5. Consider cardiac MRI to r/o infiltrative cardiomyopathy, but can be done as outpatient. 6. LifeVest prior to discharge pending reassessment of LV function 7. Consider sleep study as outpatient 8. Eventually will need right and left heart catheterization once euvolemic 9. Treatment as per Hematology Further plans are to follow Shawn Robins MD
[2018-08-28] MEDS: CYCLOBENZAPRINE HCL 10 MG TABLET (FP) PO PRN ×2 (10:04→21:37)
[2018-08-28] MEDS ORDERED: DIGOXIN 0.5 MG/2 ML AMPUL IVPUSH ONE (10:36)
[2018-08-28] MEDS: AMIODARONE HCL 200 MG TABLET (FP) PO SCH ×2 (11:32→21:38)
--- NOTE | 2018-08-28 14:23 | PN ---
Progress Note (short form) - Note Progress Note: Patient seen and examined at bedside Converted to sinus rhythm Feels well H/H= 20.1/60.5 Vital Signs Temperature 97.7 F 08/28/18 10:00 Pulse Rate 136 H 08/28/18 11:33 Respiratory Rate 18 08/28/18 10:00 Blood Pressure 98/72 08/28/18 10:00 O2 Sat by Pulse Oximetry (%) 96 08/28/18 09:00 Constitutional: Yes: No Distress, Obese Eyes: Yes: Conjunctiva Clear, PERRL HENT: Yes: Atraumatic, Normocephalic Neck: Yes: Supple, Trachea Midline Cardiovascular: Yes: RRR Respiratory: Yes: Regular, CTA Bilaterally Gastrointestinal: Yes: Normal Bowel Sounds, Soft, Abdomen, Obese Psychiatric: Yes: Alert, Oriented 08/28/18 08/28/18 05:30 05:30 WBC 13.2 H RBC 6.85 H Hgb 20.1 H* Hct 60.5 H MCV 88.3 MCHC 33.2 RDW 14.0 Plt Count 250 Neutrophils % 74.4 Lymphocytes % 13.8 Monocytes % 9.1 Eosinophils % 2.0 D Basophils % 0.7 Sodium 142 Potassium 3.8 Chloride 106 Carbon Dioxide 24 Anion Gap 12 BUN 26 H Creatinine 1.6 H 57M with history of HTN and hemochromatosis presents to the ER with new onset afib with RVR found to have HB above 18. Problem List: Hemochromatosis HTN A fib with RVR new onset CARMEL Obesity Plan: Patient will need to have another therapeutic phlebotomy. This was done and about 400ml of blood was removed with a phlebotomy blood bag kit. The procedure took about 15 minutes and his BP was 116/70, HR 92, just prior to needle stick then after 15minutes when the phlebotomy was terminated his bp was 105/69 HR 93. He denies any symptoms and he feels well. Repeat CBC in AM cardiology consult appreciated was supposed to go for LOUISE cardioversion but slot unavailable converted back into sinus rhythm Trend CBC Patient should stay hydrated and drink plenty of fluids due to phlebotomy- patient informed all questions answered Will follow
[2018-08-28] MEDS ORDERED: PT OWN MED DRAWER 7, Y5N ONE (18:48)
[2018-08-28] MEDS: MELATONIN 5 MG TABLETS PO SCH (21:37)
[2018-08-28] MEDS: ATORVASTATIN CA 10 MG TABLET (FP) PO SCH (21:38)
[2018-08-28] MEDS: ALPRAZolam 0.25 MG TABLET PO PRN (21:38)
[2018-08-28] MEDS: LIDOCAINE PATCH REMOVAL MC SCH (21:39)
--- NOTE | 2018-08-28 22:03 | PN ---
Progress Note (short form) - Note Progress Note: Patient seen and examined Feels well. AFVSS Cor: RSR, No murmurs, No gallops Lungs: Clear to P&A Abd: Soft, Normal bowel sounds, No organomegaly Ext:No significant edema Labs/Meds reviewed A/P New onset of atrial fib Hemochromatosis Erythrocytosis Cardiomyopathy CHF sleep apnea He has been taking in past testosterone cream which can explain his erythrocytosis . In addition , diagnosed with likely sleep apnea. s/p phlebotomy today -- 1unit/400ml. for hct of 60 Will need MRI of heart to assess question of cardiac involvement from hemochromatosis for d/c cardioversion per cardiology
[2018-08-29] MEDS: METOPROLOL TARTRATE 5 MG/5 ML VIAL IVPUSH PRN ×2 (01:56→06:17)
--- NOTE | 2018-08-29 07:57 | PN ---
Progress Note, Physician - Current Medication List Current Medications: Active Medications Alprazolam (Xanax -) 0.5 mg PO BID PRN PRN Reason: ANXIETY Last Admin: 08/28/18 21:38 Dose: 0.5 mg Amiodarone HCl (Cordarone -) 200 mg PO BID [facility] Last Admin: 08/28/18 21:38 Dose: 200 mg Apixaban (Eliquis -) 5 mg PO BID [facility] Last Admin: 08/28/18 21:38 Dose: 5 mg Atorvastatin Calcium (Lipitor -) 10 mg PO HS [facility] Last Admin: 08/28/18 21:38 Dose: 10 mg Carvedilol (Coreg -) 12.5 mg PO BID [facility] Last Admin: 08/28/18 21:38 Dose: 12.5 mg Cyclobenzaprine HCl (Flexeril -) 5 mg PO TID PRN PRN Reason: BACK PAIN Last Admin: 08/28/18 21:37 Dose: 5 mg Furosemide (Lasix Injection -) 40 mg IVPUSH DAILY [facility] Last Admin: 08/28/18 09:48 Dose: Not Given Lidocaine (Lidoderm Patch -) 1 patch TP DAILY [facility] Last Admin: 08/28/18 09:31 Dose: 1 patch Melatonin (Melatonin) 10 mg PO HS [facility] Last Admin: 08/28/18 21:37 Dose: 10 mg Metoprolol Tartrate (Lopressor Injection -) 5 mg IVPUSH Q4H PRN PRN Reason: TACHYCARDIA Last Admin: 08/29/18 06:17 Dose: 5 mg Miscellaneous (Lidoderm Patch Removal) 1 each [facility] DAILY@2200 [facility] Last Admin: 08/28/18 21:39 Dose: 1 each Sacubitril/Valsartan (Entresto 24 Mg-26 Mg Tablet) 1 tab PO BID [facility] Last Admin: 08/28/18 21:38 Dose: 1 tab Spironolactone (Aldactone -) 25 mg PO DAILY [facility] Last Admin: 08/28/18 09:32 Dose: 25 mg - Objective Vital Signs: Vital Signs Temperature 97.8 F 08/29/18 06:00 Pulse Rate 141 H 08/29/18 06:17 Respiratory Rate 18 08/29/18 06:00 Blood Pressure 116/67 08/29/18 06:17 O2 Sat by Pulse Oximetry (%) 96 08/28/18 21:00 Cardiovascular: Yes: Tachycardia, Pulse Irregular, S1, S2 Respiratory: Yes: Regular, CTA Bilaterally Gastrointestinal: Yes: Normal Bowel Sounds, Soft Labs: CBC, BMP 08/28/18 05:30 08/28/18 05:30 INR, PTT INR 1.05 (0.83-1.09) 08/22/18 20:40 Assessment/Plan - Problems (1) New onset a-fib Assessment/Plan: -echo shows severely reduced LV systolic function -Started on Eliquis -Tele monitoring -Seen by cardiology -On Amiodarone drip -LOUISE-guided DCCV -On Carvedilol 12.5 mg po bid Code(s): I48.91 - UNSPECIFIED ATRIAL FIBRILLATION (2) Acute systolic heart failure due to valvular disease Assessment/Plan: -Eventually will need right and left heart catheterization once euvolemic as per cardiology -Tele -Cardiology consult -echo reviewed Code(s): I50.21 - ACUTE SYSTOLIC (CONGESTIVE) HEART FAILURE; I38 - ENDOCARDITIS , VALVE UNSPECIFIED (3) Cardiomyopathy Assessment/Plan: -cardiac MRI to r/o infiltrative cardiomyopathy,can be done as outpatient. -cardiology on board Code(s): I42.9 - CARDIOMYOPATHY, UNSPECIFIED Qualifiers: Cardiomyopathy type: unspecified Qualified Code(s): I42.9 - Cardiomyopathy , unspecified (4) Hemochromatosis Assessment/Plan: -Seen by Hematology -Therapeutic phlebotomy Code(s): E83.119 - HEMOCHROMATOSIS, UNSPECIFIED Qualifiers: Hemochromatosis type: unspecified Qualified Code(s): E83.119 - Hemochromatosis, unspecified (5) CARMEL (obstructive sleep apnea) Assessment/Plan: -sleep study as outpatient Code(s): G47.33 - OBSTRUCTIVE SLEEP APNEA (ADULT) (PEDIATRIC) (6) Hyperlipidemia Assessment/Plan: -LDL 131, goal <70 mg/dl -Add atorvastatin 10 mg po HS Code(s): E78.5 - HYPERLIPIDEMIA, UNSPECIFIED
[2018-08-29] MEDS ORDERED: LIDOCAINE VISCOUS 2% ORAL/TOP 20 ML UNIT-DOSE CUP ONE (09:02)
[2018-08-29] MEDS ORDERED: LIDOCAINE VISCOUS 2% ORAL/TOP 20 ML UNIT-DOSE CUP MM ONE (09:17)
[2018-08-29 11:00] LABS: BASO % 0.7 % (0-2.0); EOS % 1.1 % (0-4.5); HEMATOCRIT 57.4 % (35.4-49); HEMOGLOBIN 18.8 GM/dL (11.7-16.9); LYMPH % 13.8 % (8-40); MCH 29.1 pg (25.7-33.7); MCHC 32.7 g/dl (32.0-35.9); MEAN CELL VOLUME 88.8 fl (80-96); MEAN PLT VOLUME 8.9 fl (7.5-11.1); MONO % 9.6 % (3.8-10.2); NEUT % 74.8 % (42.8-82.8); PLATELET COUNT 244 K/MM3 (134-434); RBC 6.47 M/mm3 (4.00-5.60); RDW 13.7 % (11.9-15.9); WHITE BLOOD COUNT 10.6 K/mm3 (4.0-10.0)
--- NOTE | 2018-08-29 11:01 | ECHO ---
Name: JOSÉ, MACIEJ Exam:Transesophageal Echocardiogram Study Date: 08/29/2018 08:57 AM Age: 57 yrs Reason For Study: pre -dccv Height: 66 in Weight: 225 lb BSA: 2.1 m2 Procedure: A 2D transesophageal echocardiogram with Doppler and color flow Doppler was performed. Informed conse nt for Transesophageal Echocardiogram, and use of a contrast agent as needed, was obtained prior to the proc edure. The patient was brought to the endoscopy suite in a fasting state. An intravenous line was placed. A topical anesthetic agent was used for oropharangeal anesthesia. A bite block was inserted. IV concious sedati on was administered using propafol. A multifrequency, multiplane transesopheageal echocardiographic endoscop e was inserted and manipulated in the standard fashion to achieve multiplane views. The usual views were ob tained; basal, mid-esophageal, transgastric and aortic views. The patient's vital signs, including blood pres sure, heart rate, pulse oximetry and cardiac rhythm were monitored throughout the procedure and remained st able. The patient tolerated the procedure well without evidence of orophangeal or esophageal trauma. There were no complications. The patient was in atrial fibrillation with rapid ventricular response during the exam with a heart rate exceeding 100 bpm. Left Ventricle The left ventricle is normal in size. No evidence of infiltrative disease. Left ventricular systolic function is severely reduced. Ejection Fraction = 25-30%. There is severe global hypokinesis of the left ventr icle. Right Ventricle The right ventricle is grossly normal size. The right ventricular systolic function is severely reduc ed. Atria The left atrial size is normal. No thrombus is detected in the left atrial appendage. No left atrial mass or thrombus visualized. Right atrial size is normal. Injection of contrast documented no interatrial ike nt. Mitral Valve The mitral valve leaflets appear normal. There is no evidence of stenosis, fluttering, or prolapse. T here is moderate mitral regurgitation. Tricuspid Valve The tricuspid valve is not well visualized, but is grossly normal. There is mild tricuspid regurgitat ion. Aortic Valve There is mild aortic sclerosis.;. No aortic regurgitation is present. Pulmonic Valve The pulmonic valve is not well visualized. There is no pulmonic valvular regurgitation. Great Vessels No evidence of atherosclerotic plaque in thoracic aorta or aortic arch. Pericardium/Pluera Possible small pericardial effusion. Interpretation Summary The left ventricle is normal in size. Left ventricular systolic function is severely reduced. There is severe global hypokinesis of the left ventricle. Ejection Fraction = 25-30%. No evidence of infiltrative disease The right ventricular systolic function is severely reduced. The left atrial size is normal. No thrombus is detected in the left atrial appendage. No left atrial mass or thrombus visualized. Right atrial size is normal. Injection of contrast documented no interatrial shunt. There is moderate mitral regurgitation. There is mild tricuspid regurgitation. There is mild aortic sclerosis.; No aortic regurgitation is present. No evidence of atherosclerotic plaque in thoracic aorta or aortic arch Possible small pericardial effusion Shawn Robins MD 08/29/2018 11:00 AM
[2018-08-29] MEDS: SPIRONOLACTONE 25 MG TABLET (FP) PO SCH (12:07)
[2018-08-29] MEDS: AMIODARONE HCL 200 MG TABLET (FP) PO SCH ×2 (12:08→21:44)
[2018-08-29] MEDS: APIXABAN 5 MG TABLET PO SCH ×2 (12:08→21:44)
[2018-08-29] MEDS: SACUBITRIL/VALSARTAN 24 MG-26 MG TABLET PO SCH ×2 (12:09→21:44)
[2018-08-29] MEDS: FUROSEMIDE 40 MG/4 ML INJECTABLE VIAL IVPUSH SCH (12:09)
[2018-08-29] MEDS: CARVEDILOL 25 MG TABLET (FP) PO SCH ×2 (12:10→21:44)
[2018-08-29] MEDS: LIDOCAINE 5% TOPICAL PATCH TP SCH (12:10)
--- NOTE | 2018-08-29 12:52 | PN ---
Progress Note, Physician Chief Complaint: Events noted AF with RVR but with few sinus beats History of Present Illness: Patient was seen and examined. Awake and alert. Chart was reviewed Denies chest pain. Denies SOB or palpitations Discussed LOUISE +/- cardioversion, but cardioversion is to be postponed since his H/H was high yesterday - Current Medication List Current Medications: Active Medications Alprazolam (Xanax -) 0.5 mg PO BID PRN PRN Reason: ANXIETY Last Admin: 08/28/18 21:38 Dose: 0.5 mg Amiodarone HCl (Cordarone -) 200 mg PO BID [facility] Last Admin: 08/29/18 12:08 Dose: 200 mg Apixaban (Eliquis -) 5 mg PO BID [facility] Last Admin: 08/29/18 12:08 Dose: 5 mg Atorvastatin Calcium (Lipitor -) 10 mg PO HS [facility] Last Admin: 08/28/18 21:38 Dose: 10 mg Carvedilol (Coreg -) 25 mg PO BID [facility] Last Admin: 08/29/18 12:10 Dose: 25 mg Cyclobenzaprine HCl (Flexeril -) 5 mg PO TID PRN PRN Reason: BACK PAIN Last Admin: 08/28/18 21:37 Dose: 5 mg Furosemide (Lasix Injection -) 40 mg IVPUSH DAILY [facility] Last Admin: 08/29/18 12:09 Dose: 40 mg Lidocaine (Lidoderm Patch -) 1 patch TP DAILY [facility] Last Admin: 08/29/18 12:10 Dose: 1 patch Melatonin (Melatonin) 10 mg PO HS [facility] Last Admin: 08/28/18 21:37 Dose: 10 mg Metoprolol Tartrate (Lopressor Injection -) 5 mg IVPUSH Q4H PRN PRN Reason: TACHYCARDIA Last Admin: 08/29/18 06:17 Dose: 5 mg Miscellaneous (Lidoderm Patch Removal) 1 each [facility] DAILY@2200 [facility] Last Admin: 08/28/18 21:39 Dose: 1 each Sacubitril/Valsartan (Entresto 24 Mg-26 Mg Tablet) 1 tab PO BID [facility] Last Admin: 08/29/18 12:09 Dose: 1 tab Spironolactone (Aldactone -) 25 mg PO DAILY [facility] Last Admin: 08/29/18 12:07 Dose: 25 mg - Objective Vital Signs: Vital Signs Temperature 98.1 F 08/29/18 10:41 Pulse Rate 122 H 08/29/18 10:41 Respiratory Rate 18 08/29/18 10:41 Blood Pressure 106/66 08/29/18 10:41 O2 Sat by Pulse Oximetry (%) 98 08/29/18 10:41 Eyes: Yes: PERRL HENT: Yes: Atraumatic Neck: Yes: Supple Cardiovascular: Yes: Tachycardia, Pulse Irregular, S1, S2 Respiratory: Yes: Diminished Gastrointestinal: Yes: Normal Bowel Sounds, Soft. No: Tenderness Edema: No Additional Findings/Remarks: Review of Systems Cardiovascular: denies: chest pain, SOB, (+) palpitations Respiratory: denies: denies: Cough or Sputum Production Gastrointestinal: denies: Nausea, Vomiting, Diarrhea, Constipation or Abdominal Discomfort Musculoskeletal: denies: joint pains Endocrine: No Symptoms Reported Neuro: denies syncope, seizures Labs: CBC, BMP 08/29/18 10:50 08/28/18 05:30 INR, PTT INR 1.05 (0.83-1.09) 08/22/18 20:40 Problem List - Problems (1) Acute systolic heart failure due to valvular disease Code(s): I50.21 - ACUTE SYSTOLIC (CONGESTIVE) HEART FAILURE; I38 - ENDOCARDITIS , VALVE UNSPECIFIED (2) Cardiomyopathy Code(s): I42.9 - CARDIOMYOPATHY, UNSPECIFIED Qualifiers: Cardiomyopathy type: unspecified Qualified Code(s): I42.9 - Cardiomyopathy , unspecified (3) Hemochromatosis Code(s): E83.119 - HEMOCHROMATOSIS, UNSPECIFIED Qualifiers: Hemochromatosis type: unspecified Qualified Code(s): E83.119 - Hemochromatosis, unspecified (4) New onset a-fib Code(s): I48.91 - UNSPECIFIED ATRIAL FIBRILLATION (5) CARMEL (obstructive sleep apnea) Code(s): G47.33 - OBSTRUCTIVE SLEEP APNEA (ADULT) (PEDIATRIC) Assessment/Plan 1. Acute systolic heart failure with MR, TR. Cardiomyopathy etiology includes tachycardia-induced cardiomyopathy, hemochromatosis but need to r/o CAD 2. AF with RVR 3. Chronic lower back pain 4. Hemochromatosis 5. Possible OSAS PLAN: 1. Continue but titrate up Carvedilol to 25 BID 2. Continue Entresto 24/26 bid with uptitration as tolerated 3. Amiodarone 200 mg BID 4. IV diuresis and Aldactone 25 qd with monitor renal function and electrolytes 5. Consider cardiac MRI (can be done as outpatient) 6. LifeVest prior to discharge pending reassessment of LV function 7. Consider sleep study as outpatient 8. Eventually will need right and left heart catheterization once euvolemic 9. Treatment as per Hematology 10. LOUISE today to assess cardiomyopathy and also to rule out infiltrative disease. Synchronized cardioversion is to be postponed due to risk of stroke. 11. Consider transfer to tertiary medical center. Patient prefers [facility]. Will speak with Dr. Isidoro Davis of [facility] Further plans are to follow hSawn Robins MD
--- NOTE | 2018-08-29 14:31 | PN ---
Progress Note (short form) - Note Progress Note: Patient seen and examined at bedside Converted to sinus rhythm yesterday but only for a short period of time Remains in A fib with episodes of RVR Feels well hemoglobin went from 20.1 to 18.8 Hypotensive at this time manual BP 80/60 done by me "Seeing stars" when sat up in bed s/p LOUISE this AM but no cardioversion done due to high Hb level Vital Signs Temperature 98.1 F 08/29/18 10:41 Pulse Rate 122 H 08/29/18 10:41 Respiratory Rate 18 08/29/18 10:41 Blood Pressure 106/66 08/29/18 10:41 O2 Sat by Pulse Oximetry (%) 98 08/29/18 10:41 Constitutional: Yes: No Distress, Obese Eyes: Yes: Conjunctiva Clear, PERRL HENT: Yes: Atraumatic, Normocephalic Neck: Yes: Supple, Trachea Midline Cardiovascular: Yes: Irregular tachycardic Respiratory: Yes: Regular, CTA Bilaterally Gastrointestinal: Yes: Normal Bowel Sounds, Soft, Abdomen, Obese Psychiatric: Yes: Alert, Oriented 08/29/18 10:50 WBC 10.6 H RBC 6.47 H Hgb 18.8 H Hct 57.4 H MCV 88.8 MCHC 32.7 RDW 13.7 Plt Count 244 Neutrophils % 74.8 Lymphocytes % 13.8 Monocytes % 9.6 Eosinophils % 1.1 Basophils % 0.7 57M with history of HTN and hemochromatosis presents to the ER with new onset afib with RVR found to have HB above 18. Problem List: Hemochromatosis HTN A fib with RVR new onset CARMEL Obesity Plan: s/p therapeutic phlebotomy yesterday for a total of 2 during this hospitalization Repeat CBC in AM Cardiologists considering transferring to tertiary care center for further care IVF if BP drops f/u testosterone studies RN spoke with Dr. Rashid from cardiology about BP Trend CBC Patient should stay hydrated and drink plenty of fluids due to phlebotomy- patient informed all questions answered Will follow
[2018-08-29] MEDS: SODIUM CHLORIDE NASAL SPRAY 44 ML BOTTLE NS SCH ×2 (18:24→21:45)
[2018-08-29] MEDS ORDERED: PT OWN MED DRAWER 7, Y5N ONE (21:19)
[2018-08-29] MEDS: LIDOCAINE PATCH REMOVAL MC SCH (21:45)
[2018-08-29] MEDS: MELATONIN 5 MG TABLETS PO SCH (21:45)
[2018-08-29] MEDS: ATORVASTATIN CA 10 MG TABLET (FP) PO SCH (21:45)
[2018-08-29] MEDS: CYCLOBENZAPRINE HCL 10 MG TABLET (FP) PO PRN (21:45)
[2018-08-29] MEDS: ALPRAZolam 0.25 MG TABLET PO PRN (21:45)
--- NOTE | 2018-08-30 08:23 | PN ---
Progress Note, Physician - Current Medication List Current Medications: Active Medications Alprazolam (Xanax -) 0.5 mg PO BID PRN PRN Reason: ANXIETY Last Admin: 08/29/18 21:45 Dose: 0.5 mg Amiodarone HCl (Cordarone -) 200 mg PO BID [facility] Last Admin: 08/29/18 21:44 Dose: 200 mg Apixaban (Eliquis -) 5 mg PO BID [facility] Last Admin: 08/29/18 21:44 Dose: 5 mg Atorvastatin Calcium (Lipitor -) 10 mg PO HS [facility] Last Admin: 08/29/18 21:45 Dose: 10 mg Carvedilol (Coreg -) 25 mg PO BID [facility] Last Admin: 08/29/18 21:44 Dose: 25 mg Cyclobenzaprine HCl (Flexeril -) 5 mg PO TID PRN PRN Reason: BACK PAIN Last Admin: 08/29/18 21:45 Dose: 5 mg Furosemide (Lasix Injection -) 40 mg IVPUSH DAILY [facility] Last Admin: 08/29/18 12:09 Dose: 40 mg Lidocaine (Lidoderm Patch -) 1 patch TP DAILY [facility] Last Admin: 08/29/18 12:10 Dose: 1 patch Melatonin (Melatonin) 10 mg PO HS [facility] Last Admin: 08/29/18 21:45 Dose: 10 mg Metoprolol Tartrate (Lopressor Injection -) 5 mg IVPUSH Q4H PRN PRN Reason: TACHYCARDIA Last Admin: 08/29/18 06:17 Dose: 5 mg Miscellaneous (Lidoderm Patch Removal) 1 each [facility] DAILY@2200 [facility] Last Admin: 08/29/18 21:45 Dose: 1 each Sacubitril/Valsartan (Entresto 24 Mg-26 Mg Tablet) 1 tab PO BID [facility] Last Admin: 08/29/18 21:44 Dose: 1 tab Sodium Chloride ([place] Nasal [place] -) 2 spray NS QID [facility] Last Admin: 08/29/18 21:45 Dose: 2 sprays Spironolactone (Aldactone -) 25 mg PO DAILY [facility] Last Admin: 08/29/18 12:07 Dose: 25 mg - Objective Vital Signs: Vital Signs Temperature 98.2 F 08/30/18 06:00 Pulse Rate 80 08/30/18 06:00 Respiratory Rate 20 08/30/18 06:00 Blood Pressure 109/51 L 08/30/18 06:00 O2 Sat by Pulse Oximetry (%) 96 08/29/18 21:00 Cardiovascular: Yes: Tachycardia, Pulse Irregular, S1, S2 Respiratory: Yes: Regular, CTA Bilaterally Gastrointestinal: Yes: Normal Bowel Sounds, Soft Labs: CBC, BMP 08/29/18 10:50 08/28/18 05:30 INR, PTT INR 1.05 (0.83-1.09) 08/22/18 20:40 Assessment/Plan - Problems (1) New onset a-fib Assessment/Plan: -echo shows severely reduced LV systolic function -Started on Eliquis -Tele monitoring -Seen by cardiology -LOUISE-done poor lv function -guided DCCV -cancellled -On Carvedilol 12.5 mg po bid Code(s): I48.91 - UNSPECIFIED ATRIAL FIBRILLATION (2) Acute systolic heart failure due to valvular disease Assessment/Plan: -Eventually will need right and left heart catheterization once euvolemic as per cardiology -Tele -Cardiology consult -echo reviewed Code(s): I50.21 - ACUTE SYSTOLIC (CONGESTIVE) HEART FAILURE; I38 - ENDOCARDITIS , VALVE UNSPECIFIED (3) Cardiomyopathy Assessment/Plan: -cardiac MRI to r/o infiltrative cardiomyopathy,can be done as outpatient. -cardiology on board Code(s): I42.9 - CARDIOMYOPATHY, UNSPECIFIED Qualifiers: Cardiomyopathy type: unspecified Qualified Code(s): I42.9 - Cardiomyopathy , unspecified (4) Hemochromatosis Assessment/Plan: -Seen by Hematology -Therapeutic phlebotomy Code(s): E83.119 - HEMOCHROMATOSIS, UNSPECIFIED Qualifiers: Hemochromatosis type: unspecified Qualified Code(s): E83.119 - Hemochromatosis, unspecified (5) CARMEL (obstructive sleep apnea) Assessment/Plan: -sleep study as outpatient Code(s): G47.33 - OBSTRUCTIVE SLEEP APNEA (ADULT) (PEDIATRIC) (6) Hyperlipidemia Assessment/Plan: -LDL 131, goal <70 mg/dl -Add atorvastatin 10 mg po HS Code(s): E78.5 - HYPERLIPIDEMIA, UNSPECIFIED Plan for cardiac cath---transfer to [place]
--- NOTE | 2018-08-30 09:12 | PN ---
Progress Note, Physician History of Present Illness: Denies chest pain. Denies SOB or palpitations, underwent phelobotomy, patient remains in PAF with RVR and episodes of SR, cardioversion was postponed since his H/H was high yesterday with concerns of hyperviscosity. - Current Medication List Current Medications: Active Medications Alprazolam (Xanax -) 0.5 mg PO BID PRN PRN Reason: ANXIETY Last Admin: 08/29/18 21:45 Dose: 0.5 mg Amiodarone HCl (Cordarone -) 200 mg PO BID [facility] Last Admin: 08/29/18 21:44 Dose: 200 mg Apixaban (Eliquis -) 5 mg PO BID [facility] Last Admin: 08/29/18 21:44 Dose: 5 mg Atorvastatin Calcium (Lipitor -) 10 mg PO HS [facility] Last Admin: 08/29/18 21:45 Dose: 10 mg Carvedilol (Coreg -) 25 mg PO BID [facility] Last Admin: 08/29/18 21:44 Dose: 25 mg Cyclobenzaprine HCl (Flexeril -) 5 mg PO TID PRN PRN Reason: BACK PAIN Last Admin: 08/29/18 21:45 Dose: 5 mg Furosemide (Lasix Injection -) 40 mg IVPUSH DAILY [facility] Last Admin: 08/29/18 12:09 Dose: 40 mg Lidocaine (Lidoderm Patch -) 1 patch TP DAILY [facility] Last Admin: 08/29/18 12:10 Dose: 1 patch Melatonin (Melatonin) 10 mg PO HS [facility] Last Admin: 08/29/18 21:45 Dose: 10 mg Metoprolol Tartrate (Lopressor Injection -) 5 mg IVPUSH Q4H PRN PRN Reason: TACHYCARDIA Last Admin: 08/29/18 06:17 Dose: 5 mg Miscellaneous (Lidoderm Patch Removal) 1 each [facility] DAILY@2200 [facility] Last Admin: 08/29/18 21:45 Dose: 1 each Sacubitril/Valsartan (Entresto 24 Mg-26 Mg Tablet) 1 tab PO BID [facility] Last Admin: 08/29/18 21:44 Dose: 1 tab Sodium Chloride ([place] Nasal [place] -) 2 spray NS QID [facility] Last Admin: 08/29/18 21:45 Dose: 2 sprays Spironolactone (Aldactone -) 25 mg PO DAILY [facility] Last Admin: 08/29/18 12:07 Dose: 25 mg - Objective Vital Signs: Vital Signs Temperature 98.2 F 08/30/18 06:00 Pulse Rate 80 08/30/18 06:00 Respiratory Rate 20 08/30/18 06:00 Blood Pressure 109/51 L 08/30/18 06:00 O2 Sat by Pulse Oximetry (%) 96 08/29/18 21:00 Constitutional: Yes: No Distress, Calm Neck: Yes: Supple Cardiovascular: Yes: Tachycardia, Pulse Irregular, Murmur (2/6 SM) Respiratory: Yes: Regular, Diminished, On Nasal O2 Gastrointestinal: Yes: Normal Bowel Sounds, Soft Edema: No Labs: CBC, BMP 08/29/18 10:50 08/28/18 05:30 INR, PTT INR 1.05 (0.83-1.09) 08/22/18 20:40 - ....Imaging EKG: Report Reviewed (Tele: PAF->SR) Problem List - Problems (1) Acute systolic heart failure due to valvular disease Code(s): I50.21 - ACUTE SYSTOLIC (CONGESTIVE) HEART FAILURE; I38 - ENDOCARDITIS , VALVE UNSPECIFIED (2) Cardiomyopathy Code(s): I42.9 - CARDIOMYOPATHY, UNSPECIFIED Qualifiers: Cardiomyopathy type: unspecified Qualified Code(s): I42.9 - Cardiomyopathy , unspecified (3) Hemochromatosis Code(s): E83.119 - HEMOCHROMATOSIS, UNSPECIFIED Qualifiers: Hemochromatosis type: unspecified Qualified Code(s): E83.119 - Hemochromatosis, unspecified (4) New onset a-fib Code(s): I48.91 - UNSPECIFIED ATRIAL FIBRILLATION (5) CARMEL (obstructive sleep apnea) Code(s): G47.33 - OBSTRUCTIVE SLEEP APNEA (ADULT) (PEDIATRIC) Assessment/Plan 08/23/2018 Echo: Normal LV size with severely decreased LV fxn, severe MR, TR 08/29/2018 LOUISE: Severe LV systolic dysfunction with cardiomyopathy, moderate MR , mild TR, severe RV systolic dysfunction, no evidence of infiltrative disease, no intracardiac shunt, no atherosclerotic plaque in thoracic aorta or aortic arch 1. Acute systolic heart failure with severe MR, TR. Cardiomyopathy etiology includes tachycardia-induced cardiomyopathy, hemochromatosis but need to r/o CAD with R&LHc once euvolemic 2. Rapid paroxysmal afib->SR 3. Chronic lower back pain 4. Hemochromatosis 5. OSAS suspect P:1. Continue amio 200 bid, increase carvedilol 25 tid, Eliquis 5 bid and Lipitor 10 qhs 2. Continue Entresto 24/26 bid with uptitration as tolerated 3. D/c IV diuresis and continue Aldactone 25 qd with monitor diuretic response, renal fxn and electrolytes 4. Outpatient cardiac MRI to r/o infiltrative cardiomyopathy, Lifevest prior to d/c pending reassessment of LV fxn, sleep study 5. Cardioversion deferred as patient is in PAF along with concerns regarding hyperviscosity syndrome with elevated Hgb, avoid testosterone use in future
[2018-08-30] MEDS: SPIRONOLACTONE 25 MG TABLET (FP) PO SCH (10:10)
[2018-08-30] MEDS: SODIUM CHLORIDE NASAL SPRAY 44 ML BOTTLE NS SCH ×4 (10:11→21:53)
[2018-08-30] MEDS: AMIODARONE HCL 200 MG TABLET (FP) PO SCH ×2 (10:11→21:49)
[2018-08-30] MEDS: CARVEDILOL 25 MG TABLET (FP) PO SCH ×3 (10:11→21:50)
[2018-08-30] MEDS: APIXABAN 5 MG TABLET PO SCH ×2 (10:11→21:50)
[2018-08-30] MEDS: LIDOCAINE 5% TOPICAL PATCH TP SCH (10:12)
--- NOTE | 2018-08-30 11:33 | EKG ---
Test Reason : Blood Pressure : / mmHG Vent. Rate : 089 BPM Atrial Rate : 089 BPM P-R Int : 150 ms QRS Dur : 084 ms QT Int : 358 ms P-R-T Axes : 036 -30 109 degrees QTc Int : 435 ms NORMAL SINUS RHYTHM POSSIBLE LEFT ATRIAL ENLARGEMENT LEFT AXIS DEVIATION INFERIOR INFARCT (CITED ON OR BEFORE 23-AUG-2018) ANTERIOR INFARCT , AGE UNDETERMINED T WAVE ABNORMALITY, CONSIDER LATERAL ISCHEMIA ABNORMAL ECG WHEN COMPARED WITH ECG OF 23-AUG-2018 10:03, SIGNIFICANT CHANGES HAVE OCCURRED Confirmed by RYLAN LEY, KANDI ([id number]) on 08/30/2018 11:32:37 AM Referred By: Confirmed By:KANDI FAGAN MD
[2018-08-30] MEDS: SACUBITRIL/VALSARTAN 24 MG-26 MG TABLET PO SCH ×2 (13:16→21:50)
[2018-08-30] MEDS: CYCLOBENZAPRINE HCL 10 MG TABLET (FP) PO PRN ×2 (13:37→22:00)
[2018-08-30] MEDS: ATORVASTATIN CA 10 MG TABLET (FP) PO SCH (21:50)
[2018-08-30] MEDS: MELATONIN 5 MG TABLETS PO SCH (21:51)
[2018-08-30] MEDS: LIDOCAINE PATCH REMOVAL MC SCH (22:11)
[2018-08-30] MEDS ORDERED: ALPRAZolam 0.25 MG TABLET PO ONE (22:15)
[2018-08-31] MEDS: CARVEDILOL 25 MG TABLET (FP) PO SCH (05:55)
[2018-08-31 06:34] VITALS: PULSE 82
[2018-08-31 07:54] LABS: HEMATOCRIT 53.4 % (35.4-49); HEMOGLOBIN 17.5 GM/dL (11.7-16.9); MCHC 32.7 g/dl (32.0-35.9); MEAN CELL VOLUME 88.6 fl (80-96); MEAN PLT VOLUME 9.3 fl (7.5-11.1); PLATELET COUNT 223 K/MM3 (134-434); RBC 6.03 M/mm3 (4.00-5.60); RDW 13.5 % (11.9-15.9); WHITE BLOOD COUNT 10.1 K/mm3 (4.0-10.0)
[2018-08-31 08:18] LABS: ANION GAP 7 MMOL/L (8-16); BLOOD UREA NITROGEN 23 mg/dL (7-18); CALCIUM 9.3 mg/dL (8.5-10.1); CHLORIDE 104 mmol/L (98-107); CO2 30 mmol/L (21-32); CREATININE 1.7 mg/dL (0.55-1.3); GLUCOSE,RANDOM 108 mg/dL (74-106); POTASSIUM 4.2 mmol/L (3.5-5.1); SODIUM 142 mmol/L (136-145)
[2018-08-31 09:12] VITALS: BP 95/50; TEMP 98.1
--- NOTE | 2018-08-31 09:30 | PN ---
Progress Note, Physician - Current Medication List Current Medications: Active Medications Amiodarone HCl (Cordarone -) 200 mg PO BID [facility] Last Admin: 08/30/18 21:49 Dose: 200 mg Apixaban (Eliquis -) 5 mg PO BID [facility] Last Admin: 08/30/18 21:50 Dose: 5 mg Atorvastatin Calcium (Lipitor -) 10 mg PO HS [facility] Last Admin: 08/30/18 21:50 Dose: 10 mg Carvedilol (Coreg -) 25 mg PO TID [facility] Last Admin: 08/31/18 05:55 Dose: 25 mg Cyclobenzaprine HCl (Flexeril -) 5 mg PO TID PRN PRN Reason: BACK PAIN Last Admin: 08/30/18 22:00 Dose: 5 mg Lidocaine (Lidoderm Patch -) 1 patch TP DAILY [facility] Last Admin: 08/30/18 10:12 Dose: 1 patch Melatonin (Melatonin) 10 mg PO HS [facility] Last Admin: 08/30/18 21:51 Dose: 10 mg Metoprolol Tartrate (Lopressor Injection -) 5 mg IVPUSH Q4H PRN PRN Reason: TACHYCARDIA Last Admin: 08/29/18 06:17 Dose: 5 mg Miscellaneous (Lidoderm Patch Removal) 1 each [facility] DAILY@2200 [facility] Last Admin: 08/30/18 22:11 Dose: 1 each Sacubitril/Valsartan (Entresto 24 Mg-26 Mg Tablet) 1 tab PO BID [facility] Last Admin: 08/30/18 21:50 Dose: 1 tab Sodium Chloride ([place] Nasal [place] -) 2 spray NS QID [facility] Last Admin: 08/30/18 21:53 Dose: 2 sprays Spironolactone (Aldactone -) 25 mg PO DAILY [facility] Last Admin: 08/30/18 10:10 Dose: 25 mg - Objective Vital Signs: Vital Signs Temperature 98.1 F 08/31/18 09:00 Pulse Rate 82 08/31/18 09:00 Respiratory Rate 20 08/31/18 09:00 Blood Pressure 95/50 L 08/31/18 09:00 O2 Sat by Pulse Oximetry (%) 96 08/31/18 09:00 Labs: CBC, BMP 08/31/18 05:30 08/31/18 05:30 INR, PTT INR 1.05 (0.83-1.09) 08/22/18 20:40
--- NOTE | 2018-08-31 09:48 | PN ---
Progress Note, Physician History of Present Illness: Denies chest pain, SOB or palpitations, underwent phelobotomy, patient remains in SR with PAC. - Current Medication List Current Medications: Active Medications Amiodarone HCl (Cordarone -) 200 mg PO BID [facility] Last Admin: 08/30/18 21:49 Dose: 200 mg Apixaban (Eliquis -) 5 mg PO BID [facility] Last Admin: 08/30/18 21:50 Dose: 5 mg Atorvastatin Calcium (Lipitor -) 10 mg PO HS [facility] Last Admin: 08/30/18 21:50 Dose: 10 mg Carvedilol (Coreg -) 25 mg PO TID [facility] Last Admin: 08/31/18 05:55 Dose: 25 mg Cyclobenzaprine HCl (Flexeril -) 5 mg PO TID PRN PRN Reason: BACK PAIN Last Admin: 08/30/18 22:00 Dose: 5 mg Lidocaine (Lidoderm Patch -) 1 patch TP DAILY [facility] Last Admin: 08/30/18 10:12 Dose: 1 patch Melatonin (Melatonin) 10 mg PO [facility] Last Admin: 08/30/18 21:51 Dose: 10 mg Metoprolol Tartrate (Lopressor Injection -) 5 mg IVPUSH Q4H PRN PRN Reason: TACHYCARDIA Last Admin: 08/29/18 06:17 Dose: 5 mg Miscellaneous (Lidoderm Patch Removal) 1 each MC DAILY@2200 [facility] Last Admin: 08/30/18 22:11 Dose: 1 each Sacubitril/Valsartan (Entresto 24 Mg-26 Mg Tablet) 1 tab PO BID [facility] Last Admin: 08/30/18 21:50 Dose: 1 tab Sodium Chloride ([place]al [place] -) 2 spray NS QID [facility] Last Admin: 08/30/18 21:53 Dose: 2 sprays Spironolactone (Aldactone -) 25 mg PO DAILY [facility] Last Admin: 08/30/18 10:10 Dose: 25 mg - Objective Vital Signs: Vital Signs Temperature 98.1 F 08/31/18 09:00 Pulse Rate 82 08/31/18 09:00 Respiratory Rate 20 08/31/18 09:00 Blood Pressure 95/50 L 08/31/18 09:00 O2 Sat by Pulse Oximetry (%) 96 08/31/18 09:00 Constitutional: Yes: No Distress, Calm Neck: Yes: Supple Cardiovascular: Yes: Regular Rate and Rhythm Respiratory: Yes: Regular, CTA Bilaterally Gastrointestinal: Yes: Normal Bowel Sounds, Soft Edema: No Labs: CBC, BMP 08/31/18 05:30 08/31/18 05:30 INR, PTT INR 1.05 (0.83-1.09) 08/22/18 20:40 - ....Imaging EKG: Report Reviewed (Tele: NSR with PAC) Problem List - Problems (1) Acute systolic heart failure due to valvular disease Code(s): I50.21 - ACUTE SYSTOLIC (CONGESTIVE) HEART FAILURE; I38 - ENDOCARDITIS , VALVE UNSPECIFIED (2) Cardiomyopathy Code(s): I42.9 - CARDIOMYOPATHY, UNSPECIFIED Qualifiers: Cardiomyopathy type: unspecified Qualified Code(s): I42.9 - Cardiomyopathy , unspecified (3) Hemochromatosis Code(s): E83.119 - HEMOCHROMATOSIS, UNSPECIFIED Qualifiers: Hemochromatosis type: unspecified Qualified Code(s): E83.119 - Hemochromatosis, unspecified (4) New onset a-fib Code(s): I48.91 - UNSPECIFIED ATRIAL FIBRILLATION (5) CARMEL (obstructive sleep apnea) Code(s): G47.33 - OBSTRUCTIVE SLEEP APNEA (ADULT) (PEDIATRIC) Assessment/Plan 08/23/2018 Echo: Normal LV size with severely decreased LV fxn, severe MR, TR 08/29/2018 LOUISE: Severe LV systolic dysfunction with cardiomyopathy, moderate MR , mild TR, severe RV systolic dysfunction, no evidence of infiltrative disease, no intracardiac shunt, no atherosclerotic plaque in thoracic aorta or aortic arch 1. Acute systolic heart failure with severe MR, TR. Cardiomyopathy etiology includes tachycardia-induced cardiomyopathy, hemochromatosis but need to r/o CAD with R&LHc once euvolemic 2. Rapid paroxysmal afib->SR 3. Chronic lower back pain 4. Hemochromatosis 5. OSAS suspect 6. Acute on CKD P:1. Continue amio 200 bid, decrease carvedilol 25 bid, Eliquis 5 bid and Lipitor 10 qhs 2. Continue Entresto 24/26 bid with uptitration as tolerated 3. Continue Aldactone 25 qd with monitor diuretic response, renal fxn and electrolytes 4. Outpatient cardiac MRI to r/o infiltrative cardiomyopathy, Lifevest prior to d/c pending reassessment of LV fxn, sleep study 5. R&LHc once renal function stabilizes, avoid testosterone use in future
[2018-08-31] MEDS ORDERED: CARVEDILOL 25 MG TABLET (FP) PO SCH (10:00)
[2018-08-31] MEDS: LIDOCAINE 5% TOPICAL PATCH TP SCH (10:14)
[2018-08-31] MEDS: AMIODARONE HCL 200 MG TABLET (FP) PO SCH (10:15)
[2018-08-31] MEDS: APIXABAN 5 MG TABLET PO SCH (10:15)
[2018-08-31] MEDS: SPIRONOLACTONE 25 MG TABLET (FP) PO SCH (10:16)
[2018-08-31] MEDS: SACUBITRIL/VALSARTAN 24 MG-26 MG TABLET PO SCH (10:18)
[2018-08-31] MEDS: SODIUM CHLORIDE NASAL SPRAY 44 ML BOTTLE NS SCH ×2 (10:19→15:04)
--- NOTE | 2018-08-31 12:19 | PN ---
Progress Note (short form) - Note Progress Note: Patient seen and examined at bedside Converted to sinus rhythm Patient brought in consultation from about 10 years ago had red cell mass and volume studies which were normal JORDAN 2 [id number] was negative as well Vital Signs Temperature 98.1 F 08/31/18 09:00 Pulse Rate 82 08/31/18 09:00 Respiratory Rate 20 08/31/18 09:00 Blood Pressure 95/50 L 08/31/18 09:00 O2 Sat by Pulse Oximetry (%) 96 08/31/18 09:00 Constitutional: Yes: No Distress, Obese Eyes: Yes: Conjunctiva Clear, PERRL HENT: Yes: Atraumatic, Normocephalic Neck: Yes: Supple, Trachea Midline Cardiovascular: Yes: RRR S1 S2 Respiratory: Yes: Regular, CTA Bilaterally Gastrointestinal: Yes: Normal Bowel Sounds, Soft, Abdomen, Obese Psychiatric: Yes: Alert, Oriented 08/31/18 08/31/18 05:30 05:30 WBC 10.1 H RBC 6.03 H Hgb 17.5 H Hct 53.4 H MCV 88.6 MCHC 32.7 RDW 13.5 Plt Count 223 Sodium 142 Potassium 4.2 Chloride 104 Carbon Dioxide 30 Anion Gap 7 L BUN 23 H Creatinine 1.7 H 57M with history of HTN and hemochromatosis presents to the ER with new onset afib with RVR found to have HB above 18. Problem List: Hemochromatosis HTN A fib with RVR new onset CARMEL Obesity Plan: s/p therapeutic phlebotomy for a total of 2 during this hospitalization Patient brought in consultation from about 10 years ago had red cell mass and volume studies which were normal JORDAN 2 [id number] was negative as well Repeat CBC in AM will consider phlebotomy tomorrow or Tuesday depending on BP f/u testosterone studies-pending Trend CBC Patient should stay hydrated and drink plenty of fluids due to phlebotomy- patient informed all questions answered Will follow
--- NOTE | 2018-08-31 15:40 | DS ---
Physical Examination Vital Signs: Vital Signs Temperature 98.1 F 08/31/18 09:00 Pulse Rate 82 08/31/18 09:00 Respiratory Rate 20 08/31/18 09:00 Blood Pressure 95/50 L 08/31/18 09:00 O2 Sat by Pulse Oximetry (%) 96 08/31/18 09:00 Labs: CBC, BMP 08/31/18 05:30 08/31/18 05:30 Discharge Summary Reason For Visit: NEW ONSET ATRIAL FIBRILLATION Current Active Problems Acute systolic heart failure due to valvular disease (Acute) Cardiomyopathy (Acute) Hemochromatosis (Acute) Hyperlipidemia (Acute) New onset a-fib (Acute) CARMEL (obstructive sleep apnea) (Acute) Condition: Improved - Instructions Diet, Activity, Other Instructions: Follow up labs in one week Life vest as per cardiology Referrals: Aniceto Cordero MD [Primary Care Provider] - 1 Week Disposition: HOME - Home Medications Comprehensive Discharge Medication List: Ambulatory Orders Losartan Potassium 100 mg PO DAILY 08/23/18 Amiodarone HCl [Cordarone -] 200 mg PO BID #60 tablet 08/31/18 Apixaban [Eliquis -] 5 mg PO BID #60 tablet 08/31/18 Atorvastatin Ca [Lipitor] 10 mg PO HS #30 tablet 08/31/18 Carvedilol [Coreg -] 25 mg PO BID #60 tablet 08/31/18 Cyclobenzaprine HCl [Flexeril -] 5 mg PO TID PRN #30 tablet 08/31/18 Furosemide [Lasix -] 40 mg PO DAILY #30 tablet 08/31/18 Lidocaine 5% Patch [Lidoderm -] 1 patch TP DAILY #30 patch 08/31/18 Melatonin 10 mg PO HS tab 08/31/18 Sacubitril/Valsartan [Entresto 24 mg-26 mg Tablet] 1 tab PO BID #60 tablet 08/31 Sodium Chloride Nasal [place] [[place] Nasal [place] -] 2 spray NS QID #0 spray 08/31/18 Spironolactone [Aldactone -] 25 mg PO DAILY #30 tablet 08/31/18
== END 2018-08-31 23:34 | disposition home or self-care (01) | DRG 308 ==
LOC: JER 18:42 → INTOOBSV 22:39 → OBSVTOIN 22:39 → JERBED 22:39 → J4S 08-23 16:10 → JSAMEDAYSX 08-26 09:56 → J4W 08-26 09:58
PROVIDERS: ADMIT Internal Medicine; ATTEND Family Medicine
DX: I48.91 Unspecified atrial fibrillation (principal); I50.21 Acute systolic (congestive) heart failure; E83.119 Hemochromatosis, unspecified; E66.9 Obesity, unspecified; I11.0 Hypertensive heart disease with heart failure; I36.1 Nonrheumatic tricuspid (valve) insufficiency; Z68.36 Body mass index [BMI] 36.0-36.9, adult; G47.33 Obstructive sleep apnea (adult) (pediatric); I42.9 Cardiomyopathy, unspecified; G89.29 Other chronic pain; M54.5 Low back pain; E78.5 Hyperlipidemia, unspecified
CPT/HCPCS: 36415; 71045-TC-FY; 80048; 80053; 80061; 82272; 82550; 82553; 82728; 83036; 83540; 83550; 83721; 83735; 83880; 84100; 84403; 84439; 84443; 84484; 85025; 85027; 85610; 85730; 93005; 93010; 93306-TC; 93312; 93325; 99285-25